=== PATIENT | male | born 1960 | race Caucasian/White ===

== ENCOUNTER 2023-03-13 11:05 | Emergency (ER) | payer MEDICARE, SELFPAY ==
[2023-03-13 11:10] VITALS: BP 130/105; PULSE 100; RESP 18; TEMP 36.3; O2SAT 97; BMI 38.3
[2023-03-13] MEDS: KETOROLAC 30 MG/ML inj IM (11:39)
--- NOTE | 2023-03-13 11:59 | ED_ITS ---
HPI - Back Pain/Injury General Date Seen: 03/13/23 Chief Complaint: Back Injury/Pain Stated Complaint: back pain Time Seen by Provider: 03/13/23 11:16 Source: patient Mode of arrival: ambulatory Limitations: no limitations History of Present Illness HPI Narrative: Patient is 62-year-old male presenting for right-sided low back pain. He has been having issues with back pain for a while now in had any recent MRI done 2 weeks ago. He is scheduled for an injection for his back pain 2 weeks from now. States that tonight the pain got acutely worse in use unable to ambulate. He continues to be painful today with difficulty ambulating. He does state he is able to make it to the bathroom this morning but was unable to yesterday due to the pain. Has taken Tylenol and ibuprofen for pain with minimal improvement in symptoms. He is also using the muscle relaxant has not been helping. He is currently not on any pain contract. Denies numbness, saddle anesthesia, incontinence. The pain radiates to right gluteal region and he does have some small radiation to his right leg Related Data Home Medications Medication Instructions Recorded Confirmed atorvastatin 40 mg tablet 40 mg PO DAILY 03/13/23 03/13/23 cyclobenzaprine 10 mg tablet 10 mg PO QPM 03/13/23 03/13/23 glimepiride 4 mg tablet 4 mg PO BID 03/13/23 03/13/23 levothyroxine 125 mcg tablet 125 mcg PO DAILY 03/13/23 03/13/23 lisinopril 10 mg tablet 10 mg PO DAILY 03/13/23 03/13/23 metformin 500 mg tablet 500 mg PO 3XD 03/13/23 03/13/23 semaglutide 0.25 mg or 0.5 mg (2 mg subcut 03/13/23 mg/3 mL) subcutaneous pen injector (Ozempic) sitagliptin phosphate 100 mg 100 mg PO DAILY 03/13/23 03/13/23 tablet (Januvia) tamsulosin 0.4 mg capsule 0.8 mg PO DAILY 03/13/23 03/13/23 Allergies Allergy/AdvReac Type Severity Reaction Status Date / Time No Known Drug Allergies Allergy Verified 03/13/23 11:16 Review of Systems Narrative: Negative unless stated in HPI Exam Narrative: Exam Narrative: Const: Well-nourished, Well-developed, in mild distress Eyes: PERRL, no conjunctival injection, and symmetrical lids HENT: Atraumatic external nose and ears. Moist mucous membranes. MSK:Extremities w/o deformity, Normal Active ROM Skin: Warm, Dry. No rashes or lesions. Neuro: Normal Muscle tone, No focal neurological deficits. Psych: Awake, Alert, & Oriented x3. Appropriate mood and affect. Const: Vital Signs, click to edit/add: Vital Signs - 24 hr 03/13/23 11:10 Temperature 97.3 F L Pulse Rate [Pulse Oximeter] 100 Respiratory Rate 18 Blood Pressure [Ri ght Upper Arm] 130/105 H Pulse Oximetry 97 Oxygen Delivery Me thod Room Air Course Vital Signs Vital signs: Initial Vital Signs Temperature 97.3 F L 03/13/23 11:10 Temperature Source Temporal Artery Scan 03/13/23 11:10 Pulse Rate 100 03/13/23 11:10 Respiratory Rate 18 03/13/23 11:10 Blood Pressure 130/105 H 03/13/23 11:10 Blood Pressure Mean 113 H 03/13/23 11:10 Blood Pressure Position Sitting 03/13/23 11:10 Pulse Oximetry 97 03/13/23 11:10 Oxygen Delivery Method Room Air 03/13/23 11:10 Vital Signs Temperature 97.3 F L 03/13/23 11:10 Pulse Rate 100 03/13/23 11:10 Respiratory Rate 18 03/13/23 11:10 Blood Pressure 130/105 H 03/13/23 11:10 Pulse Oximetry 97 03/13/23 11:10 Oxygen Delivery Method Room Air 03/13/23 11:10 Temperature 97.3 F L 03/13/23 11:10 Pulse Rate 100 03/13/23 11:10 Respiratory Rate 18 03/13/23 11:10 Blood Pressure 130/105 H 03/13/23 11:10 Pulse Oximetry 97 03/13/23 11:10 Oxygen Delivery Method Room Air 03/13/23 11:10 MDM - Back Pain/Injury MDM Narrative Medical decision making narrative: Patient is 62-year-old male presenting for right lower back pain. He has had a recent MRI for this is scheduled for an injection next few weeks. He is trying to get his appointment moved up. His pain was uncontrollable since last night. No trauma or injuries to it that he is aware of. I do not believe repeat imaging will show any benefits today. We will given Toradol for pain also trying oxycodone. Patient's pain is better. Patient will be discharged home and will be given some oxycodone. Informed to follow-up with his primary care provider if pain continues. Discharge Plan Discharge Clinical Impression: Low back pain Qualifiers: Chronicity: acute Back pain laterality: right Sciatica presence: with sciatica Sciatica laterality: sciatica of right side Qualified Code(s): M54.41 - Lumbago with sciatica, right side Patient Disposition: Home, Self-Care Condition: Stable Instructions: Back Pain (ED) Additional Instructions: Take the Medication as prescribed. Return for new or worsening symptoms. If symptoms persist follow-up with your primary care provider. Prescriptions: No Action cyclobenzaprine 10 mg tablet 10 mg PO QPM atorvastatin 40 mg tablet 40 mg PO DAILY metformin 500 mg tablet 500 mg PO 3XD tamsulosin 0.4 mg capsule 0.8 mg PO DAILY levothyroxine 125 mcg tablet 125 mcg PO DAILY lisinopril 10 mg tablet 10 mg PO DAILY glimepiride 4 mg tablet 4 mg PO BID Januvia 100 mg tablet 100 mg PO DAILY Ozempic 0.25 mg or 0.5 mg (2 mg/3 mL) pen injector subcut Follow Up/Referrals: Luca Hogue MD [Primary Care Provider] - Stand Alone Forms: [facility] Info Instructions
[2023-03-13] MEDS: OXYCODONE 5 MG TABLET PO (12:02)
== END 2023-03-13 12:59 | disposition home or self-care (01) ==
PROVIDERS: Emergency Provider Student in an Organized Health Care Education/Training Program; PCP Family Medicine
DX: M54.41 Lumbago with sciatica, right side (principal)
CPT/HCPCS: 96372; 99282; 99283; A9270; J1885

== ENCOUNTER 2023-03-22 10:22 | Outpatient (CLI) | payer MEDICARE, SELFPAY | END 2023-03-22 10:23 | disposition home or self-care (01) | LOC: INJ CL 10:24 | PROVIDERS: PCP Family Medicine; Visit Provider Family Medicine | DX: M54.16 Radiculopathy, lumbar region (principal); M48.062 Spinal stenosis, lumbar region with neurogenic claudication | CPT/HCPCS: 62323; J0702; Q9966 ==

== ENCOUNTER 2023-12-16 11:28 | Outpatient (CLI) | payer MEDICARE, SELFPAY ==
--- OUTSIDE RECORDS SUMMARY | 2023-12-16 11:31 | XMS_ITS | Continuity of Care Document ---
Author Organization [facility] Address [address] [place] [address] Phone Care Team Providers Care Spouter Name Role Phone Yolanda LI, PhD, Homero Unavailable Unavai lable Allergies, Adverse Reactions, Alerts Substance Reaction Status Criticality No Known Allergies Active No Inform ation Medications Medication Instructions Dosage Effective Dates (start - stop) Status Comments oxycodone 10 mg tablet take one-half to one tablet by oral route at HS PRN postop pain G89.18 - Active Valium 5 mg tablet Take 1 tab PO 1 hour prior to MRI scan, may repeat 1 time. - Active JANUVIA (unknown strength) Not Available - Active METFORMIN HCL (unknown strength) Not Available - Active GLIPIZIDE (unknown strength) Not Available - Active Procedures Procedure Date Postop Followup Visit Postop Followup Visit X-Ray Exam Lwr Spine, Min 4 Views TLIF - Includes PSF at the same level - PA PSF - Additional Level(s) - PA 24 PEARL FACETC/FRMT ARTHRD LUM 1 Lami For Excision Of Lesion, Lumbar (Cys t, Lipoma etc.) - PA Lami, Facetectomy/Foraminotomy, Lumbar ( Stenosis) Posterior Instrumentation, 3-6 Segments - PA PEEK/ Cage/ Implant, For Interbody Fusio n - PA TLIF - Includes PSF at the same level Ri PEARL FACETC/FRMT ARTHRD LUM 1 PSF - Additional Level(s) Lami For Excision Of Lesion, Lumbar (Cys t, Lipoma etc.) Lami, Facetectomy/Foraminotomy, Lumbar ( Stenosis) Posterior Instrumentation, 3-6 Segments PEEK/ Cage/ Implant, For Interbody Fusio n Postop Followup Visit POSTOP FOLLOW-UP VISIT Telephone 2023 Corpectomy, Cervical - PA Anterior Interbody Fusion, Cervical - PA Anterior Interbody Fusion - Additional L evel - PA ACDF - Anterior Cervical Discectomy and Fusion - PA Anterior Instrumentation, 4-7 Segments - PA PEEK/ Cage/ Implant, For Corpectomy & Fu katie - PA PEEK/ Cage/ Implant, For Interbody Fusio n - PA Corpectomy, Cervical Anterior Interbody Fusion, Cervical Anterior Interbody Fusion - Additional L evel(s) ACDF - Anterior Cervical Discectomy and Fusion Anterior Instrumentation, 4-7 Segments J PEEK/ Cage/ Implant, For Corpectomy & Fu katie PEEK/ Cage/ Implant, For Interbody Fusio n OFFICE/OUTPATIENT VISIT EST Phone Office/Outpatient Visit,[facility], [facility] 2022 Advance Directives Directive Yes / No Effective Date File Name No Information Encounters Encounter Description Practice Location Reason(s) For Visit Diagnoses Date Provider Providers Copied on Encounter Didier/MATILDA Silver, [address], [place], [id number], [place] tel:[phone] [facility] [place] Arthrodesis status 4 Yolanda Valentin. [facility], [address], [place], [address], [place]. tel:[phone] Referring Provider: Luca Shankar, [facility] [address], [place], [address]. tel:[phone] [facility], [address], [place], [place], [id number], [place] tel:[phone] [facility] [place] Encounter for other specified surgical aftercare 4 Yolanda Valentin. [facility], [address], [place], [address], [place]. tel:[phone] Referring Provider: Luca Shankar, [facility] [address], [place], [address]. tel:[phone] [facility], [address], [place], [id number], [place] tel:[phone] [facility] [place] No Information 4 Yolanda Valentin. [facility], [address], [place], [address], [place]. tel:[phone] [facility], [address], [place], [place], [id number], [place] tel:[phone] [facility] No Information 4 Gadiel Ko. [facility], [address], [facility] [place], [id number] , [place]. tel:[phone] Referring Provider: Luca Shankar [facility] [address], [place], [address]. tel:[phone] [facility], [address], [place], [place], [id number], [place] tel:[phone] [facility] No Information 4 Yolanda Valentin. [facility], [address], [place], [address], [place]. tel:[phone] Referring Provider: Luca Shankar, [facility] [address], [place], [address]. tel:[phone] [facility], [address], [place], [place], [id number], [place] tel:[phone] [facility] [place] Encounter for other specified surgical aftercare 4 Yolanda Valentin. [facility], [address], [place], [address], [place]. tel:[phone] Referring Provider: Didier Caldwell [address], [place], [address]. tel:[phone] [facility], [address], [place], [place], [id number], [place] tel:[phone] [facility] No Information 4 Yolanda Valentin. [facility], [address], [place], [address], [place]. tel:[phone] Referring Provider: Luca Shankar [employer] [facility] [address], [place], [address]. tel:[phone] [facility], [address], [facility] [place], [id number], [place] tel:[phone] [facility] No Information 4 Gadiel Ko. [facility], [address], [place], [place], [id number] , [place]. tel:[phone] Referring Provider: Luca Shankar [employer] [address], [place], [address]. tel:[phone] [facility], [address], [place], [id number], [place] tel:[phone] [facility] No Information 4 Yolanda Valentin. [facility], [address], [facility] [place], [address], [place]. tel:[phone] Referring Provider: Luca Shankar [employer] [address] [place], [address]. tel:[phone] OFFICE/OUTPAT IENT VISIT EST Phone [facility], [address], [place], [id number], [place] tel:[phone] [facility] No Information 4 Yolanda Homero. [facility], [address], [place], [address], [place]. [phone] Referring Provider: Luca Shankar [employer] [address] [place], [address]. tel:[phone] Office/Outpat ient Visit,[place], [place] [facility], [address], [place], [id number], [place] tel:[phone] [facility] Spinal stenosis, lumbar region with neurogenic claudication 3 Guerrero Homero. [facility] [place], [address], [place], [address], [place]. [phone] Referring Provider: Luca Shankar [employer] [address] [place], [address]. tel:[phone] Family History Family Member Type Diagnosis Age At Onset No Information Payers Payer name Insurance type Covered alliance party ID Authoriza tion(s) [employer] [id number] Social History Type Description Quantity Date Captured Comments Alcohol Use Details Unknown Caffeine Use Details Unknown Tobacco Use Status No Information Smoking Status No Information Sex Male Vital Signs Date / Time: Height Weight BMI Pulse Rate Blood Pressure Temperature Respiratory Rate Body Surface Area Head Circumference Head Circ. Percentile Wt./Yuri. Percentile BMI percentile Pulse Ox Inhaled Ox 8:11 AM 76.00 in Chief Complaint And Reason For Visit No Information Reason For Referral Reason For Referral No Information History Of Present Illness Encounter Date Complaint History Of Prese nt Illness No Information Functional Status Date Functional Assessmen t No Information Instructions Date Instruction Additional Infor mation No Information Assessments Type Assessment Date assessment Arthrodesis status Patient Care Teams Name Effective Dates (start - stop) Status Members No Information
--- OUTSIDE RECORDS SUMMARY | 2023-12-16 11:31 | XMS_ITS | Clinical Summary ---
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 DO NOT CRUSH OR CHEW. 0 08/10/19 06 Active cholecalciferol (VITAMIN D) 1,000 unit capsule Take 1,000 Units by mouth once daily. Active magnesium 250 mg tab Take 250 mg by mouth at bedtime. Active multivitamin (MVI) tablet Take 1 tablet by mouth once daily. Active levothyroxine (SYNTHROID) 125 mcg tabletIndications: Acquired hypothyroidism Take 1 Tablet (125 mcg) by mouth once daily. 90 Tablet 3 03/02/20 23 Active lisinopriL (PRINIVIL; ZESTRIL) 10 mg tabletIndications: Hypertension, unspecified type Take 1 Tablet (10 mg) by mouth once daily. 90 Tablet 3 04/04/20 23 Active glimepiride (AMARYL) 4 mg tabletIndications: Type 2 diabetes mellitus with complication, without long-term current use of insulin (HC) Take 2 Tablets (8 mg) by mouth once daily with a meal. For Type 2 Diabetes. 180 Tablet 2 07/11/19 24 Active metFORMIN (GLUCOPHAGE) 500 mg tabletIndications: Type 2 diabetes mellitus with complication, without long-term current use of insulin (HC) TAKE 1 TABLET BY MOUTH IN THE MORNING AND 2 TABLETS IN THE EVENING FOR DIABETES 270 Tablet 2 07/11/19 24 Active SITagliptin phosphate (Januvia) 100 mg tabletIndications: Type 2 diabetes mellitus with complication, without long-term current use of insulin (HC) Take 1 Tablet (100 mg) by mouth once daily. For Diabetes. 90 Tablet 2 07/11/19 24 Active tamsulosin (FLOMAX) 0.4 mg capsuleIndications :Urinary retention Take 2 Capsules (0.8 mg) by mouth once daily after a meal. For urinary symptoms 180 Capsule 1 07/11/19 24 Active polyethylene glycol-electrolyte (GOLYTELY) 236-22.74-6.74 -5.86 gram suspensionIndicati ons:Encounter for screening colonoscopy Drink 2 liters the day before colonoscopy and 2 liters 6 hours before colonoscopy appointment 4000 mL 12/05/19 24 Active atorvastatin (LIPITOR) 40 mg tabletIndications: Mixed hyperlipidemia Take 1 Tablet (40 mg) by mouth at bedtime. 12/05/19 24 Active Ozempic 0.25 mg or 0.5 mg (2 mg/3 mL) subcutaneous penIndications:Typ e 2 diabetes mellitus with complication, without long-term current use of insulin (HC) INJECT 0.5 MG SUBCUTANEOUSLY ONCE WEEKLY. 9 mL 12/07/19 24 Active atorvastatin (LIPITOR) 40 mg tabletIndications: Mixed hyperlipidemia Take 1 Tablet (40 mg) by mouth once daily. 90 Tablet 2 04/04/20 23 024 Discontinued(*M edication adjustment) acetaminophen (TYLENOL EXTRA STRGTH) 500 mg tabletIndications: Post-op pain Take 2 Tablets (1,000 mg) by mouth every 6 hours. Max acetaminophen dose: 4000mg in 24 hrs. 20 Tablet 07/20/19 24 024 Discontinued(*P atient states no longer taking) oxyCODONE 10 mg tabletIndications: Post-op pain Take one-half to 1 tablet (5-10 mg) by mouth every 4 hours if needed for severe pain. 30 Tablet 07/20/19 24 024 Discontinued(*P atient states no longer taking) sennosides-docusat e (SENOKOT S) (8.6-50 mg) tabletIndications: Post-op pain Take 1 to 4 tablets by mouth two times daily. 20 Tablet 07/20/19 24 024 Discontinued(*P atient states no longer taking) WalkerIndications: Post-op pain Walker with front wheels for home use for 3 months. 1 Each 07/20/19 24 024 Discontinued(*P atient states no longer taking) methocarbamoL (ROBAXIN) 750 mg tabletIndications: Acute post-operative pain TAKE ONE TABLET BY MOUTH EVERY SIX HOURS NEEDED FOR MUSCLE SPASM 60 Tablet 07/21/19 24 024 Discontinued(*P atient states no longer taking) semaglutide (Ozempic) 2 mg/3 mL penIndications:Typ e 2 diabetes mellitus with complication, without long-term current use of insulin (HC) INJECT 0.5MG SUBCUTANEOUSLY ONCE WEEKLY 9 mL 09/14/19 024 Discontinued Active Problems Problem Noted Date Diagnosed Date Spondylolisthesis 07/19/2023 Spinal stenosis, lumbar alexandro on, with neurogenic claudication 07/19/2023 Stricture of urethral meatus in male 06/07/2023 Spondylosis, cervical, with myelopathy 4 Spondylosis, cervical, with myelopathy 4 Balanitis 12/30/2019 Phimosis 12/30/2019 Acute urethral obstruction 12/30/2019 Obstructive uropathy 12/30/2019 BPH (benign prostatic hyperplasia) 12/30/2019 Insomnia 12/30/2019 Hyperlipidemia 12/30/2019 Urinary retention 12/30/2019 Overview: Dec 2019: Creatinine increased to over 3. TAMMY (acute kidney injury) 12/30/2019 CKD (chronic kidney disease) stage 3, GFR 30-59 ml/min 08/06/2017 Overview: July 2017: Creatinine 1.4, GFR 53. Mar 2019: Creatinine 1.89 with GFR of 37. Possibly associated with foot infection. April 2019, Creatinine 1.95, Referral to religion teacher. October 2019: Creatinine 1.47 and GFR 50. Dec 2019: Creatinine jumped to 3.5 with acute urinary retention. On recheck much better down to 1.38. Jun 2021: Creatinine 1.2, GFR > 60. Microalbuminuria 11/29/2014 Overview: On ALIX inhibitor, lisinopril. Vitamin D deficiency 04/10/2014 Overview: April 2014: Vitamin D 14. Controlled substance agreement signed and scanne d 05/01/13 04/05/2014 Routine adult health maintenance 10/12/2013 Overview: Colonoscopy 10/2013 normal repeat in 10 years Low back pain 10/17/2011 Overview: Controlled substance agreement 05/01/[address] Shoemaker. Controlled Substance Agreement signed April [address] Hogue for Tramadol (Ultram) up to 60/month for back pain. ~ March 2023: L4-L5 right [place] epidural steroid injection by Dr. Marshall. Acquired hypothyroidism 05/06/2010 Overview: Diagnosis 2009. Jun 2021: increased Levothyroxine from 100 to 112mcg. Regular astigmatism 07/12/2006 Presbyopia 07/12/2006 Myopia 07/12/2006 Primary hypertension 01/20/2005 Overview: Mar 2019: decreased hydrochlorothiazide from 25 to 12.5mg due to mildly hypotensive and increase in creatinine associated with foot infection. Dec 2019: STopping hydrochlorothiazide permanently due to possible gout right knee. Also off lisinopril due to infection/low blood pressure. Jan 2020: blood pressure still good despite no lisinopril and no Hydrochlorothiazide. Mixed hyperlipidemia 06/18/2002 Overview: Previously on Atorvastatin (Lipitor) thinks had stomach upset?, and crestor tolerated well, but changed to Simvastatin (Zocor) due to cost. November 2013: trial on crestor, pending Prior Auth approval, if too expensive, go back to Simvastatin (Zocor). July 2014: Patient paying extra for crestor over Simvastatin (Zocor). August 2016: side effects of possible mild myalgia from crestor, changing back to Simvastatin (Zocor) 40mg. Jun 2021: changing Simvastatin (Zocor) to Atorvastatin (Lipitor) 40mg to get on high intensity statin. 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 NUCLEAR STRESS TEST 04/2008 NORMAL EF 56% Next eye exam 04/17 retinal specialist. April 2013: positive microalbuminuria, already on ACEI, continue. Ruchi SONI approved, see December 12 2013 chart note. Mar 2019: decreased metformin to 1000mg due to Acute Kidney problem. Jun 2021: Added trulicity once weekly injections, also increased metformin to 1,500mg. November 2021: Hemoglobin A1c greatly improved on Trulicity, but due to cost changing to Ozempic. May 2023: Increased ozempic to 0.5mg / week dose via [employer]. FOOT ULCER, DIABETIC 03/16/2002 Overview: Under the regular care of Podsiatrist Right pinky toe amputation 2002, and left 3rd toe 1/2 amputation approximately 2005 Diabetic polyneuropathy asso ciated with type 2 diabetes mellitus 03/16/2002 Resolved Problems Problem Noted Date Diagnosed Date Resolved Date ERECTILE DYSFUNCTION - ORGANIC 11/13/2002 05/01/2012 Encounters Date Type Department Care Team Description 12/13/2023 Medical Messaging [facility] [address] [place] [address] Luca Hogue MD Colonoscopy 12/12/2023 Telephone [facility] [address] [facility] [address] [place] [address] Vitor Hawthorne MBBS Follow Up 12/05/2023 7:00 AM CDT Preop Visit [facility] [address] [place] [address] Luca Hogue MD Preoperative Exam (DOS 12/16/2023/[facility]/Dr Harrington/Colonoscopy ); Diabetes (Last Diabetic Check: 07/11/2023/Last Diabetic Eye Exam: 05/06/2023/Last Diabetic Education: 12/03/2019) 12/05/2023 Refill [facility] [address] [place] [address] Luca Hogue MD Refill Request (Ozempic) 12/05/2023 Travel 11/30/2023 8:45 AM CDT Office Visit [facility] [address] [place] [address] Raj Ferro, ROMELIA Follow Up (Diabetic foot check, callus') 11/30/2023 Travel 11/29/2023 Telephone [facility] [address] [place] [address] Arnoldo Harrington MD Questions 11/23/2023 3:22 PM CDT - 11/23/2023 11:59 PM CDT Hospital Encounter [facility] [address] [facility] [address] [place] [address] Homero Guerrero MD Menden, Timothy J, PT 11/23/2023 Travel 11/17/2023 3:04 PM CDT - 11/17/2023 11:59 PM CDT Hospital Encounter [facility] [address] [facility] [address] [place] [address] Homero Guerrero MD Menden, Timothy J, PT 11/17/2023 Travel 11/07/2023 Medical Messaging [facility] [address] [place] [address] Luca Hogue MD Urologist/Upcoming Colonoscopy 11/03/2023 3:00 PM CDT - 11/03/2023 11:59 PM CDT Hospital Encounter [facility] [address] [facility] [address] [place] [address] Homero Guerrero MD Menden, Timothy J, PT 11/03/2023 Travel 10/27/2023 3:09 PM CDT - 10/27/2023 11:59 PM CDT Hospital Encounter [facility] [address] [place] [address] [address] [place] [address] Homero Guerrero MD Menden, Timothy J, PT 10/27/2023 Travel 10/20/2023 2:59 PM CDT - 10/20/2023 11:59 PM CDT Hospital Encounter [facility] [address] [place] [address] [address] [place] [address] Homero Guerrero MD Menden, Timothy J, PT 10/20/2023 Travel 10/13/2023 3:01 PM CDT - 10/13/2023 11:59 PM CDT Hospital Encounter [facility] [address] [place] [address] [address] [place] [address] Homero Guerrero MD Menden, Timothy J, PT 10/13/2023 Travel 10/11/[address] [address] Arnoldo Harrington MD Appointment 10/06/2023 1:36 PM CDT - 10/06/2023 11:59 PM CDT Hospital Encounter [facility] [address] [place] [address] Homero Guerrero MD Lee, Molly E, PT 10/06/2023 Travel 09/29/2023 2:38 PM CDT - 09/29/2023 11:59 PM CDT Hospital Encounter [address] [place] [address] Homero Guerrero MD Menden, Timothy J, PT 09/29/2023 Travel 09/22/2023 2:38 PM CDT - 09/22/2023 11:59 PM CDT Hospital Encounter [address] [place] [address] Homero Guerrero MD Menden, Timothy J, PT 09/22/2023 Travel 09/15/2023 8:19 AM CDT - 09/15/2023 11:59 PM CDT Hospital Encounter [facility] [address] [facility] [address] [place] [address] Homero Guerrero MD Menden, Timothy J, PT 09/15/2023 Travel from Last 3 Months Immunizations Name Administration Dates Next Due AMB Influenza, IIV3 (Age >=3 years)(Flu Clinic Only) 03/03/2010 COVID-19 vaccine (Roosevelt-J& J) PF, MDV 08/09/2020 COVID-19 vaccine (Moderna Rafat danielle 50mcg/0.25mL) PF, MDV 03/17/2021 Hepatitis B (Adult) 12/04/2014,07/26/2014,2013 Influenza, IIV4 02/17/2023,,06/08/2019,2017,03/07/2017,04/09/2016,04/10/2015,1 06/09/2013 Influenza,CCIIV4 PRESERV FREE 02/18/2022, 020 Pneumococcal Poly,23-Valent (Pneumovax) 11/13/2002 Td (Age >=7 Years) 11/13/2002 Tdap 08/06/2013 Zoster (Shingrix-RZV, recombinant) 01/30/2020, Family History * Patient is adopted Medical History Relation Name Comments No Known Problems Father adopted No Known Problems Mother adopted Genetic Other adopted. Relation Name Status Comments Father Mother Other Social History Tobacco Use Types Packs/Day Years Used Date Smoking Tobacco: Never Smokeless Tobacco: Never Tobacco Cessation:Counseling Given: Not Answered Alcohol Use Standard Drinks/Week Comments Yes 0 (1 standard drink = 0.6 oz pur e alcohol) Moderate PHQ-2 Answer Date Recorded PHQ-2 TOTAL SCORE 0 07/11/2023 Social Connections Answer Date Recorded Frequency of Communication with Friends and Fami ly 0 09/30/2022 Financial Resource Strain Answer Date R ecorded Difficulty of Paying Living Expenses 3 09/30/2022 Difficulty of Paying Living Expenses Not on file 09/30/2022 Food Insecurity Answer Date Recorded Worried About Running Out of Food in the Last Ye ar 1 09/30/2022 Transportation Needs Answer Date Record ed Lack of Transportation (Medical) 1 09/30/2022 Housing Stability Answer Date Recorded Unable to Pay for Housing in the Last Year 1 09/30/2022 Sex and Gender Information Value Date Recorded Sex Assigned at Not on file Gender Identity Not on file Sexual Orientation Not on file Obstetrics History Last Filed Vital Signs Vital Sign Reading Time Taken Comments Blood Pressure 118/77 12/05/2023 7:04 AM CDT Pulse 89 12/05/2023 7:04 AM CDT Temperature 37.1 ??C (98.7 ??F) 07/21/2023 7:51 AM CD T Respiratory Rate 16 07/21/2023 7:51 AM CDT Oxygen Saturation 100% 12/05/2023 7:04 AM CDT Inhaled Oxygen Concentration - - Weight 129.1 kg (284 lb 11.2 oz) 12/05/2023 7:04 AM CDT Height 190.8 cm (6' 3.12) 12/05/2023 7:04 AM CD T Body Mass Index 35.47 12/05/2023 7:04 AM CDT Plan of Treatment Upcoming Encounters Date Type Department Care Team (Late st Contact Info) Description 12/16/2023 11:45 AM CDT Office Visit [facility] [address] [place] [address] Arnoldo Harrington MD [address] [place] [address] Arrived 04/27/2024 7:00 AM PHOTOGRAPHER HELPER Office Visit [facility] [address] [place] [address] Luca Hogue MD [address] [place] [address] 04/27/2024 9:20 AM PHOTOGRAPHER HELPER Office Visit [facility] [address] [place] [address] [place] [address] [place] [address] Health Maintenance Due Date Last Done Comments HIV for age 15-65 1977 Pneumococcal series for age 6-64 (2 of 2 - PCV) 11/14/2003 11/13/2002 Tetanus booster 08/07/2023 08/06/2013, 11/13/2002 Influenza for age 50-64 01/08/2024 02/18/20, 02/18/2022, 01/27/2021, Additional history exists Depression screening for age 12+ 07/10/2024 07/11/2023, 06/09/2022, 06/07/2022, Additional history exists BMI (ht and wt on same day) for age 18+ 12/04/2024 12/05/2023, 07/11/2023, 06/07/2022, Additional history exists Lipids for age 45-75 12/04/2028 12/05/2023, 11/25/2022, 11/11/2021, Additional history exists Colonoscopy through age 75 12/15/2033 12/16/2023, Tdap Completed 08/06/2013 Zoster (shingles) series for age 50+ Completed 01/30/2020, 11/08/2019 Hepatitis C screening for ag e 18-79 Completed 09/29/2020 COVID-19 vaccine series Completed 02/18/20, 02/18/2022, 08/14/2021, Additional history exists Medical Devices Implanted Type Area Insolvency Consultant Device Identifier Shelf Expiration Date Model / Serial / Lot Iol Kidder +15.5 Acrysof Iq Sn60wf - [id number] Implanted:Qty: 1 on 04/18/2017 by Fitz Gill MD at [facility] Left: [employer] 05/08/2021 [id number]-[id number]# / [id number] / Iol Kidder -18 Acrysof Iq Sn60wf - [id number] Implanted:Qty: 1 on 04/25/2017 by Fitz iGll MD at [facility] Right: [employer] 07/24/2021 [id number]-39.0# / [id number] / Plate [place] Elite Cervical 52.5mm Implanted:Qty: 1 on 06/07/2023 by Homero Guerrero MD at [facility] N/A: Spine [id number] / / Description:PLATE ATLANTIS E LITE CERVICAL 52.5MM Screw Cerv Ant 4x16mm [place] Translational Fa Slf Tppng - [id number] Implanted:Qty: 1 on 06/07/2023 by Homero Guerrero MD at [facility] N/A: Spine Medtronic Spine/Ortho [id number] / / Screw Cerv Ant 4x14mm [place] Translational Va Slf Tppng - [id number] Implanted:Qty: 1 on 06/07/2023 by Homero Guerrero MD at [facility] N/A: Spine Medtronic Spine/Ortho [id number] / / Screw Cerv Ant 4x16mm [place] Translational Va Slf Tppng - [id number] Implanted:Qty: 2 on 06/07/2023 by Homero Guerrero MD at [facility] N/A: Spine Medtronic Spine/Ortho [id number] / / Screw Cerv Ant 4x17mm [place] Translational Va Slf Tppng - [id number] Implanted:Qty: 1 on 06/07/2023 by Homero Guerrero MD at [facility] N/A: Spine Medtronic Spine/Ortho [id number] / / Spacer Cage Lmbr [id number] Anatomic Ptc Implanted:Qty: 1 on 06/07/2023 by Homero Guerrero MD at [facility] 06/30/2030 [id number] / / 25NS Description:Spacer Cage Lmbr [id number] Anatomic Ptc Pliafx Prime Demineralized Cortical Bone Fibers 5.0cc Freeze-Dried Implanted:Qty: 1 on 06/07/2023 by Homero Guerrero MD at [facility] N/A: Spine 07/29/2027 [id number] / [id number] / Description:PLIAFX PRIME DEM INERALIZED CORTICAL BONE FIBERS 5.0CC FREEZE-DRIED [id number] 1-4mm 15cc Medtronic Chips Canclls Freeze Dried Implanted:Qty: 1 on 06/07/2023 by Homero Guerrero MD at [facility] N/A: Spine Med[employer] Spine/Ortho 07/06/2027 [id number] / [id number] / Spacer Cerv [id number] Vertestack Peek - [id number] Implanted:Qty: 1 on 06/07/2023 by Homero Guerrero MD at [facility] N/A: Spine Medtronic Spine/Ortho 11/27/2028 [id number] / / [id number] Spacer Cerv 7x49d85di Vertestack Peek - [id number] Implanted:Qty: 1 on 06/07/2023 by Homero Guerrero MD at [facility] N/A: Spine Medtronic Spine/Ortho 08/18/2029 [id number] / / 27MN Spacer Cage Cerv [id number] Vertestack Peek Stack Corpectomy - [id number] Implanted:Qty: 1 on 06/07/2023 by Homero Guerrero MD at [facility] N/A: Spine Medtronic Spine/Ortho 05/27/2029 [id number] / / 63MC Screw Cerv Ant 4.5x13mm [place] Translational Va Slf Tppng - [id number] Implanted:Qty: 1 on 06/07/2023 by Homero Guerrero MD at [facility] N/A: Spine Medtronic Spine/Ortho [id number] / / Bone 1-4mm 90cc Medtronic Chips Canclls Freeze Dried - [id number] Implanted:Qty: 1 on 07/19/2023 by Homero Guerrero MD at [facility] N/A: Spine Medtronic Spine/Ortho 07/08/2026 [id number] / [id number] / Spacer Lmbr 06y54il Capstone Tlif Titnm Coating - [id number] Implanted:Qty: 1 on 07/19/2023 by Homero Guerrero MD at [facility] N/A: Spine Medtronic Spine/Ortho 11/12/2030 [id number] / / 61NG Set Screw Lmbr Ant 5.5mm Solera Break Off - [id number] Implanted:Qty: 6 on 07/19/2023 by Homero Guerrero MD at [facility] N/A: Spine Medtronic Spine/Ortho [id number] / / Screw Lmbr Post 7.5x45mm Solera 5.5/6 Va Cocr - [id number] Implanted:Qty: 2 on 07/19/2023 by Homero Guerrero MD at [facility] N/A: Spine Medtronic Spine/Ortho [id number] / / Vincenzo Lmbr 55x5.5mm Solera 5.5/6 Cvd Titnm - [id number] Implanted:Qty: 1 on 07/19/2023 by Homero Guerrero MD at [facility] N/A: Spine Medtronic Spine/Ortho [id number] / / Vincenzo Lmbr 70x5.5mm Solera 5.5/6 Cvd Titnm - [id number] Implanted:Qty: 1 on 07/19/2023 by Homero Guerrero MD at [facility] N/A: Spine Medtronic Spine/Ortho [id number] / / Screw Lmbr Post 6.5x50mm Solera 5.5/6 Va Cocr - [id number] Implanted:Qty: 2 on 07/19/2023 by Homero Guerrero MD at [facility] N/A: Spine Medtronic Spine/Ortho [id number] / / Screw Lmbr Post 6.5x55mm Solera 5.5/6 Va Cocr - [id number] Implanted:Qty: 2 on 07/19/2023 by Homero Guerrero MD at [facility] N/A: Spine Medtronic Spine/Ortho [id number] / / Procedures Procedure Name Priority Date/Time Associated Diagnosis Comments COLONOSCOPY SCREENING Routine 12/16/2023 8:12 AM CDT Screen for colon cancer URINE ALBUMIN TO CREATININE RATIO, RANDOM Routine 12/05/2023 7:59 AM CDT Type 2 diabetes mellitus with complication, without long-term current use of insulin (HC) CREATININE Routine 12/05/2023 7:56 AM CDT Primary hypertension SODIUM Routine 12/05/2023 7:56 AM CDT Preoperative examination POTASSIUM Routine 12/05/2023 7:56 AM CDT Preoperative examination HEMOGLOBIN Routine 12/05/2023 7:56 AM CDT Preoperative examination Mild chronic anemia LIPID PANEL W REFLEX MEASURED LDL Routine 12/05/2023 7:56 AM CDT Mixed hyperlipidemia HEMOGLOBIN A1C Routine 12/05/2023 7:56 AM CDT Type 2 diabetes mellitus with complication, without long-term current use of insulin (HC) ANTI HCV Add On 09/29/2020 7:27 AM CDT Need for hepatitis C screening test from Last 3 Months or Most Recently Relevant to Health Maintenance Results * URINE ALBUMIN TO CREATININE RATIO, RANDOM (12/05/2023 7:59 AM CDT) ALB RAND URINE 15.8 mg/L 12/05/2023 4:10 PM CDT [facility] CREATININE,URIN E 2.39 g/L 12/05/2023 4:10 PM CDT [facility] ALBUMIN TO CREATININE RATIO,RAND UR 6.6 <30.0 mg/g creat 12/05/2023 4:10 PM CDT [facility] Urine URINE SPECIMEN / Unknown Non-Blood / Unknown 12/05/2023 7:59 AM CDT 12/05/2023 7:59 AM CDT Narrative [facility] - 12/05/2023 4:10 PM CDT If Albumin to Creatinine Ratio is elevated, consider the following: ? Elevations seen with incipient nephropathy associated ?? with diabetes mellitus or hypertension. Stress, exercise,hematuria, ?? and urinary tract infection may also produce elevated results. If clinically indicated, confirm with ?24 Hour Albumin to Creatinine Ratio. ?? Luca Hogue MD URINE [facility] [address] [place] [address], * LIPID PANEL W REFLEX MEASURED LDL (12/05/2023 7:56 AM CDT) CHOLESTEROL,TOTAL 141 100 - 199 mg/dL 12/05/2023 2:37 PM CDT [facility] Comment: Cholesterol, Total Reference Ranges Desirable <200 mg/dL Borderline 200-239 mg/dL High >=240 mg/dL TRIGLYCERIDES 85 <150 mg/dL 12/05/2023 2:37 PM CDT [facility] HDL CHOLESTEROL 66 >40 mg/dL 2:37 PM CDT [facility] NON-HDL CHOLESTEROL 75 <145 mg/dl 12/05/2023 2:37 PM CDT [facility] CHOL/HDL RATIO 2.14 <4.50 12/05/2023 2:37 PM CDT [facility] LDL CHOLESTEROL 58 <=130 mg/dL 12/05/2023 2:37 PM CDT [facility] VLDL CHOLESTEROL 17 <=30 mg/dL 12/05/2023 2:37 PM CDT [facility] PROVIDER ORDERED STATUS RANDOM 12/05/2023 2:37 PM CDT [facility] Blood BLOOD SPECIMEN / Unknown Venipuncture / Unknown 12/05/2023 7:56 AM CDT 12/05/2023 7:57 AM CDT Luca Hogue MD CHEMISTRY [facility] [address] [place] [address], [place] * (ABNORMAL) HEMOGLOBIN (12/05/2023 7:56 AM CDT) HEMOGLOBIN 13.3(L) 13.5 - 17.5 g/dL 12/05/2023 8:01 AM CDT [facility] MCV 87 80 - 100 fL 12/05/2023 8:01 AM CDT [facility] Blood BLOOD SPECIMEN / Unknown Venipuncture / Unknown 12/05/2023 7:56 AM CDT 12/05/2023 7:57 AM CDT Luca Hogue MD HEMATOLOGY [facility] [address] [place] [address], [place] [phone] * SODIUM (12/05/2023 7:56 AM CDT) SODIUM 137 136 - 145 mmol/L 12/05/2023 2:37 PM CDT [facility] Blood BLOOD SPECIMEN / Unknown Venipuncture / Unknown 12/05/2023 7:56 AM CDT 12/05/2023 7:57 AM CDT Luca Hogue MD CHEMISTRY [facility] [address] [place] [address], [place] * POTASSIUM (12/05/2023 7:56 AM CDT) POTASSIUM 4.8 3.5 - 5.1 mmol/L 12/05/2023 2:37 PM CDT [facility] Blood BLOOD SPECIMEN / Unknown Venipuncture / Unknown 12/05/2023 7:56 AM CDT 12/05/2023 7:57 AM CDT Luca Hogue MD CHEMISTRY Performing Organization Address City/State/[facility] Co de Phone Number [facility] [address] [place] [address], [place] * (ABNORMAL) CREATININE (12/05/2023 7:56 AM CDT) eGFR 79(L) >90 mL/min/1.7 3m2 12/05/2023 2:37 PM CDT [facility] Comment:As of 2021, eG FR is calculated by the CKD-EPI creatinine equation without race adjustment. ??eGFR can be influenced by muscle mass, exercise, and diet. ??The reported eGFR is an estimation only and is only applicable if the renal function is stable. CREATININE 1.07 0.70 - 1.20 mg/dL 12/05/2023 2:37 PM CDT [facility] Blood BLOOD SPECIMEN / Unknown Venipuncture / Unknown 12/05/2023 7:56 AM CDT 12/05/2023 7:57 AM CDT Luca Hogue MD CHEMISTRY Performing Organization Address [facility]/ZIP Co de Phone Number [facility] [address] [place] [phone], * HEMOGLOBIN A1C MONITORING (POCT) (12/05/2023 7:56 AM CDT) HEMOGLOBIN A1C MONITORING (POCT) 6.0 <=6.4 % 12/05/2023 8:10 AM CDT [facility] Blood BLOOD SPECIMEN / Unknown Venipuncture / Unknown 12/05/2023 7:56 AM CDT 12/05/2023 7:57 AM CDT Narrative [facility] - 12/05/2023 8:10 AM CDT ? (<=6.9%) ? Indicates good control ? (7.0% to 7.9%) ? Indicates fair control ? (>=8.0%) ? Indicates poor control ?? NOTE: ??These thresholds are guidelines and ?individual targets may vary. Falsely low levels may be seen with: Recent Transfusion, Recent Significant Blood Loss, Hemolytic Diseases, or Falsely elevated levels may be seen with: Untreated Anemias, Splenectomy ? Luca Hogue MD CHEMISTRY Performing Organization Address [facility] Co de Phone Number [facility] [address] [place] [address], * ANTI HCV (09/29/2020 7:27 AM CDT) HEPATITIS C ANTIBODY Non-React maurice Non-React maurice 09/29/2020 3:57 PM CDT [facility] Comment:Antibodies to HCV no t detected; does not exclude the possibility of exposure to HCV. Blood BLOOD SPECIMEN / Unknown Venipuncture / Unknown 09/29/2020 7:27 AM CDT 09/29/2020 7:27 AM CDT Luca Hogue MD SEND OUTS [facility] [address] [place] [address], from Last 3 Months or Most Recently Relevant to Health Maintenance Advance Directives * Full Code (Latest Code Status on File) Date Activated Date Inactivated Comments 07/19/2023 8:15 PM 07/21/2023 4:37 PM Question Answer Comments Code Status Discussion: Other * Full Code Date Activated Date Inactivated Comments 07/19/2023 8:01 AM 07/19/2023 8:15 PM Question Answer Comments Code Status Discussion: Unable to Assess Preferences, Provider to review later * Full Code Date Activated Date Inactivated Comments 06/07/2023 6:56 PM 06/08/2023 4:30 PM Question Answer Comments Code Status Discussion: Other * Full Code Date Activated Date Inactivated Comments 06/07/2023 3:42 PM 06/07/2023 6:56 PM Question Answer Comments Code Status Discussion: Reviewed Preferences * Full Code Date Activated Date Inactivated Comments 06/07/2023 5:53 AM 06/07/2023 3:42 PM Question Answer Comments Code Status Discussion: Unable to Assess Preferences, Provider to review later Care 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
--- OUTSIDE RECORDS SUMMARY | 2023-12-16 11:31 | XMS_ITS | Continuity of Care Document ---
Author Organization [facility], [facility] Address [address] [facility] [address] [place] [address] Care Team Providers Care Community Assistant Name Role Phone SELVIN MARCO Primary Care Provider [phone] Assessment No assessment recorded. Plan of Treatment Reminders Order Date Submit Date Provider Last Modified By Organization Details Last Modified Time Details Appointments None record ed. Lab None record ed. Referral None record ed. Procedures None record ed. Surgeries None record ed. Imaging None record ed. Medication Orders None record ed. Patient TargetsNo targets recorded. Patient InstructionsNo instructions recorded. Reason for Referral None Reported. Results Created Date Observation Date Name Description Value Unit Range Abnormal Flag LastModifiedBy Organization Detail LastModifiedTime 11/01/19 24 10/05/2023 bladd er scan (PROC ) No observ ation record ed. BARCODE Not Available 11/01/2023 17:25:13 Result Notes None recorded. Problems Name Status Onset Date Resolution Date Notes Provider Name and Address Organization Details Recorded Time Sensation as if urinary bladder still full Active 06/14/19 Marilin proctor [facility] 06/14/2022 17:20:50 Acute cystitis Active 06/23/19 Jordan Reno MD [address] [facility],[address] [place] [address], [phone], [facility] 06/23/2022 12:20:02 Lower urinary tract symptoms due to benign prostatic hypertrophy Active 06/23/19 Jordan Reno MD [address] [facility],[address], [place], [address], [facility] 06/23/2022 12:47:01 Blood in urine Active 06/25/19 Jordan Reno MD [address] [facility],[address], [place], [address], [facility] 06/25/2022 08:59:56 Acquired phimosis Active 10/05/19 24 Jordan Reno MD [address] [facility],[address], [place], [address], [facility] 10/05/2023 10:01:29 Problem Notes None recorded. Procedures Surgical History Date Name Laterality Status Provider Name and Address Organization Details Recorded Time 10/05/19 24 COMPLEX VISIT completed Jordan Reno MD [address] [facility],[address], [place], [address], [facility] 10/05/2023 10:02:06 10/05/19 24 Bladder Scan completed Carla proctor [facility] 10/05/2023 08:50:43 06/14/19 23 [facility] 17:22:47 05/18/19 22 [facility]21 15:23:13 01/16/20 20 CIRC[facility]CISION [facility]SURG) [facility]/2020 09:06:50 10/13/19 14 [facility] 09:48:44 [facility] foot [facility] 16:57:33 Imaging Results None recorded. Procedure Notes None recorded. Medical Equipment None Reported. Allergies No known drug allergies Medications Name Sig Start Date Stop Date Status Note LastModified by Organization Details LastModified Time Prescription - New 05/16 completed Not Available Not Available Not Available cyclobenzapr ine 10 mg tablet active Not Available Not Available Not Available atorvastatin 40 mg tablet active Not Available Not Available Not Available metformin 500 mg tablet active Not Available Not Available Not Available trazodone 50 mg tablet 10/04 completed Not Available Not Available Not Available azithromycin 250 mg tablet 05/18 completed Not Available Not Available Not Available hydrocodone 5 mg-acetamino phen 325 mg tablet 05/16 completed Not Available Not Available Not Available permethrin 5 % topical cream APPLY TWICE A WEEK 10/04 completed Not Available Not Available Not Available acetaminophe n 500 mg tablet 10/04 completed Not Available Not Available Not Available triamcinolon e acetonide 0.1 % topical cream 10/04 completed Not Available Not Available Not Available simvastatin 40 mg tablet active Not Available Not Available Not Available levothyroxin e 100 mcg tablet active Not Available Not Available Not Available lorazepam 0.5 mg tablet 10/04 completed Not Available Not Available Not Available methocarbamo l 750 mg tablet active Not Available Not Available Not Available tamsulosin 0.4 mg capsule active Not Available Not Available Not Available meclizine 25 mg tablet active Not Available Not Available No t Available cephalexin 500 mg capsule 05/16 completed Not Available Not Available Not Available metformin 1,000 mg tablet active Not Available Not Available Not Available levothyroxin e 125 mcg tablet active Not Available Not Available Not Available lisinopril 10 mg tablet active Not Available Not Available Not Available glimepiride 4 mg tablet active Not Available Not Available Not Available cephalexin 500 mg tablet TAKE 1 TABLET BY MOUTH EVERY 6 HOURS FOR 7 DAYS 05/18 completed Not Available Not Available Not Available gabapentin 100 mg capsule active Not Available Not Available Not Available cefdinir 300 mg capsule Take 1 capsule every 12 hours by oral route for 14 days. 10/04 completed Not Available Not Available Not Available diazepam 5 mg tablet 10/04 completed Not Available Not Available Not Available levothyroxin e 112 mcg tablet active Not Available Not Available Not Available amoxicillin 875 mg-potassium clavulanate 125 mg tablet 10/04 completed Not Available Not Available Not Available oxycodone 5 mg tablet 10/04 completed Not Available Not Available Not Available aspirin active Not Available Not Avail able Not Available Flomax 05/16 completed Not Available Not Available Not Available simvastatin 05/16 completed Not Available Not Available Not Available Keflex 05/16 completed Not Available Not Available Not Available lisinopril 05/18 completed Not Available Not Available Not Available Synthroid 05/16 completed Not Available Not Available Not Available Tylenol active Not Available Not Avail able Not Available trazodone 05/16 completed Not Available Not Available Not Available metformin 05/16 completed Not Available Not Available Not Available Amaryl 05/16 completed Not Available Not Available Not Available Januvia 100 mg tablet active Not Available Not Available No t Available Januvia 05/16 completed Not Available Not Available Not Available oxycodone 10 mg tablet 10/04 completed Not Available Not Available Not Available Senexon-S 8.6 mg-50 mg tablet 10/04 completed Not Available Not Available Not Available TRUEplus Lancets 33 gauge active Not Available Not Available Not Available Trulicity 0.75 mg/0.5 mL subcutaneous pen injector active Not Available Not Available Not Available Ozempic 0.25 mg or 0.5 mg (2 mg/1.5 mL) subcutaneous pen injector active Not Available Not Available Not Available Ozempic 0.25 mg or 0.5 mg (2 mg/3 mL) subcutaneous pen injector active Not Available Not Available Not Available Vitals Date Recorded Body height Body mass index (BMI) Body weight Provider Name and Address Organization Details Last Updated DateTime 10/05/2023 193.04 cm 35.3 kg/m2 432615.79 g Carla Ng [facility] 10/05/2023 08:47:45 Social History Question Answer Notes LastModified by Organizat ion Details LastModified Time Tobacco Smoking Status [facility] 16:57:16 What Is Your Level Of Alcohol Consumption? Occasional [email or web address] Information not available 10/05/2023 What Is Your Level Of Caffeine Consumption? Occasional [email or web address] Information not available 10/05/2023 Do You Or Have You Ever Used E-cigarettes Or Vape? Never Used Electronic Cigarettes [email or web address] Information not available 01/10/2020 What Was The Date Of Your Most Recent Tobacco Screening? 10/05/2023 [email or web address] Information not available 10/05/2023 Have You Ever Been Counseled For Unhealthy Alcohol Use? No [email or web address] Information not available 10/05/2023 Do You Use Any Illicit Or Recreational Drugs? No [email or web address] Information not available 10/05/2023 Has Tobacco Cessation Counseling Been Provided? No [email or web address] Information not available 10/05/2023 Do You Or Have You Ever Used Any Other Forms Of Tobacco Or Nicotine? No [email or web address] Information not available 10/05/2023 How Many Days In The Past Year Have You Consumed 5 Or More Drinks? 0 [email or web address] Information no t available 10/05/2023 Sex: Unknown Functional Status None recorded. Mental Status None recorded. Family History Nothing Reported. Medical History Condition Response Diabetes Y Sexually Transmitted Infection N Other N Bleeding Disorder N High Blood Pressure Y Kidney Stones N High Cholesterol Y GERD/Acid Reflux N Heart Disease N Cancer N Lung Disease N Depression N Immunizations Vaccine Type Date Status Provider Name and Address Organization Details Recorded Time COVID-19, mRNA, LNP-S, PF, monika-sucrose, 30 mcg/0.3 mL 02/17/2023 completed Carla September null, [facility] 10/05/2023 08:47:49 Influenza, split virus, quadrivalent, PF 02/17/2023 completed Carla September null, [facility] 10/05/2023 08:47:49 Influenza, MDCK, quadrivalent, PF 01/25/2020 [facility] 15:30:20 zoster recombinant 11/08/2019 completed Azul Marlow null, [facility] 03/15/2023 15:30:20 zoster recombinant 01/30/2020 [facility] 15:30:20 COVID-19, mRNA, LNP-S, PF, 100 mcg/0.5mL dose or 50 mcg/0.25mL dose 03/17/2021 [facility]23 15:30:20 COVID-19 vaccine, vector-nr, [id number], PF, 0.5 mL 08/09/2020 [facility] 15:30:20 pneumococcal polysaccharide PPV23 11/13/2002 [facility] 15:30:20 Tdap 08/06/2013 [facility] 15:30:20 Influenza, split virus, trivalent, preservative 03/03/2010 completed Azul Almejere null, [facility] 03/15/2023 15:30:20 Td (adult), 2 Lf tetanus toxoid, preservative free, adsorbed 11/13/2002 completed Azul Almejere null, [facility] 03/15/2023 15:30:20 Hep B, adult 07/26/2014 completed Azul Almejere null, [facility] 03/15/2023 15:30:20 Hep B, adult 12/04/2014 completed Azul Almejere null, [facility] 03/15/2023 15:30:20 Hep B, adult 04/08/2014 completed Azul Almejere null, [facility] 03/15/2023 15:30:20 Influenza, split virus, quadrivalent, PF 06/08/2019 completed Azul Almejere null, [facility] 03/15/2023 15:30:20 Influenza, split virus, quadrivalent, PF 01/27/2021 completed Azul Almejere null, [facility] 03/15/2023 15:30:20 Influenza, split virus, quadrivalent, PF 03/07/2017 completed Azul Almejere null, [facility] 03/15/2023 15:30:20 Influenza, split virus, quadrivalent, PF 04/08/2014 completed Azul Almejere null, [facility] 03/15/2023 15:30:20 Influenza, split virus, quadrivalent, PF 04/09/2016 completed Azul Almejere null, [facility] 03/15/2023 15:30:20 Influenza, split virus, quadrivalent, PF 04/10/2015 completed Azul Almejere null, [facility] 03/15/2023 15:30:20 Influenza, split virus, quadrivalent, PF 04/18/2018 completed Azul Almejere null, [facility] 03/15/2023 15:30:20 Influenza, MDCK, quadrivalent, PF 02/18/2022 completed Azul Almejere null, [facility] 03/15/2023 15:30:28 COVID-19, mRNA, LNP-S, PF, 100 mcg/0.5mL dose or 50 mcg/0.25mL dose 08/14/2021 completed LAURI Soto [facility] 03/15/2023 15:30:28 COVID-19, mRNA, LNP-S, bivalent, PF, 50 mcg/0.5 mL or 25mcg/0.25 mL dose 02/18/2022 completed LAURI Soto [facility] 03/15/2023 15:30:28 Past Encounters Encounter ID Performer Location Encounter Start Date Encounter Closed Date Diagnosis/Indication Diagnosis SNOMED-CT Code [id number] Jordan Reno MD [facility] [address] [facility],[address] [place] [phone] 10/05/2023 08:38:53 10/05/2023 11:19:05 Lower urinary tract symptoms due to benign prostatic hypertrophy [id number] Acquired phimosis 048145 009 Blood in urine [id number] Health Concerns Section Related Observation LastModified by Organization Detai ls LastModified Time None Recorded Concern Status LastModified by Organization Details LastModified Time None Recorded Payers Encounter Date Sequence Insurance Name Policy Number Policy Schmidt Covered Member ID Schmidt Member ID Guarantor Name 10/05/2023 1 [employer] (PPO) [id number] Riddhi Low [id number] Yasir Low Notes Date Note Type Note Provider Name and Address Organization Details Recorded Time 10/05/2023 text/html HPI Notes: 0: Patient was seen in consultation at [facility] on 12/28/2019 after he was transferred from [place] because they were unable to place a Meyers catheter. He is diabetic and has severe phimosis. He has been not been able to retract his foreskin for more than 20 years. The foreskin was extremely swollen but I was able to place a catheter after dilating the tip of the prepuce and placing a wire. Initially had some renal insufficiency due to temporary catheter obstruction, evaluated at [facility] and this improved with catheter drainage. He has also seen Dr. Brady from nephrology for this. 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 Unfortunately he was unable to urinate after surgery and eventually had a Meyers catheter placed in the emergency room at [place]. He remains with a Meyers catheter. He had severe retention when he was first evaluated back on December 27. He had a renal insufficiency that resolved with a Meyers. He presents today for counseling and discussion. 02/11/20: He has been self catheterizing once or twice daily for an average of about 300 to 600 cc. He also typically voids about 5 or 6 times per day for a volume of 350 to 500 cc. Renal ultrasound shows normal kidneys with a postvoid residual of 78 mL. 05/16/20: He has been doing much better now and has stopped self catheterizing as his postvoid residuals have been nearly 0. Postvoid residual scan today is 0 mL. His recent creatinine was 1.35, which is much improved from previous. Today I reviewed his recent notes and outside labs from Dr. Hogue with [facility]. 05/18/21: He has not been catheterizing any longer for about the last year. He does have weak stream and takes tamsulosin 0.8 mg daily. Nocturia x1. Review of his creatinine from [facility] on 03/30/2021 is 1.32. Postvoid residual today 300 mL. No further problems related to his foreskin. No recent prostate cancer screening. Last PSA was 0.25 in 2017. 06/23/22: He follows up today with a recent history of gross hematuria and clot passage about 2 weeks ago. I reviewed the recent clinic notes from Dr. Hogue dated 06/07/2022. He also had a urine culture at that time that was negative but showed 10-50,000 mixed species. Most recent PSA was 0.3 on 06/07/2022. Significant pyuria on the urinalysis. He continues to have symptoms of frequency and bladder pressure but the hematuria has subsided. His last imaging was a CT abdomen and pelvis without contrast that was negative on 2019. He temporarily had stopped his tamsulosin but has now restarted this. His postvoid residual in our office last week was 0. Urinalysis today shows small leukocytes and trace blood. 10/05/23: Overall he is doing well with no recurrent hematuria or UTIs. He had recent back surgery and had a Meyers placed for a while. He is sitting to void at times because of splaying of his urine but feels that he is emptying well. Postvoid residual today is 6 mL. He has been discharged from Dr. Brady's clinic with nephrology, and is pleased about this. Recent PSA 0.25 on 08/26/2023. AUA symptom score 7, bother 4. Jordan Reno MD [address] [place] [address], [phone], [facility] 10/05/2023 10:02:31
--- OUTSIDE RECORDS SUMMARY | 2023-12-16 11:31 | XMS_ITS | Data Portability ---
[facility] Organization [facility] Address [address] [place] [address] Care Team Providers Care Construction Analyst Name Role Phone MARCO HOGUE Primary Care Provider [phone] Assessment No assessment recorded. Plan of Treatment Reminders Order Date Submit Date Provider Last Modified By Organization Details Last Modified Time Details Appointments None recorded. Lab creatinine , serum or plasma 2019 021 [email or web address] Not available 1 14:52:05 urinalysis , dipstick 2022 023 [email or web address] [facility], [address], [address], [place], [address], 3 12:07:50 Referral None recorded. Procedures bladder scan (PROC) 2020 021 [email or web address] [facility], [address], [address], [place], [address], 1 13:06:59 Surgeries None recorded. Imaging US, kidney 2019 021 [facility], [address] [place] [place], [address], 1 11:39:36 Medication Orders cefdinir 300 mg capsule 2022 023 [email or web address] [id number], [address], [place], [id number], 08:48:25 Patient TargetsNo targets recorded. Patient Instructions Encounter Date Encounter Id Patient Instructions Last Modified By Organization Details Last Modified Time 06/14/2022 [id number] Informed patient to keep appointment and followup with Dr. Reno on 07/14/2022. [email or web address] Not available 06/14/2022 17:23:34 Reason for Referral None Reported. Results Created Date Observation Date Name Description Value Unit Range Abnormal Flag LastModifiedBy Organization Detail LastModifiedTime 05/16/2020 bladd er scan (PROC ) Volume (in mL) 0ml Not Available [address] [place], [place], [address], 05/16/2020 13:06:39 06/23/19 23 06/23/2022 urina lysis , dipst ick Color-Status Yellow Not Available [address] [place], [place], [address], 06/23/2022 11:34:50 06/23/19 23 06/23/2022 urina lysis , dipst ick Clarity-Stat us Clear Not Available [address] [place], [place], [address], 06/23/2022 11:34:50 06/23/19 23 06/23/2022 urina lysis , dipst ick Ketones-Stat us 5 Not Available [address] [place], [place], [address], 06/23/2022 11:34:50 06/23/19 23 06/23/2022 urina lysis , dipst ick Blood-Status Trace Not Available [address] [place], [place], [place], [address], 06/23/2022 11:34:50 06/23/19 23 06/23/2022 urina lysis , dipst ick Leuko-Status Small Not Available [facility] [place] [address], [place], [address], 06/23/2022 11:34:50 05/16/19 21 bladd er scan (PROC ) No observ ation record ed. [email or web address] [facility] [address], [place], [address], 05/16/2020 14:24:12 05/25/19 22 05/18/2021 bladd er scan (PROC ) No observ ation record ed. BARCODE Not Available 05/25/2021 15:05:11 06/28/19 23 06/28/2022 CT, abdom en + pelvi s, w/wo contr ast EXAM: CT, ABDOME N + PELVIS , W/WO CONTRA ST [facility] DATE/T DAGO: 023 10:00 AM INDICA TION: Hematu jigar, unspec ified COMPAR RADHA: None. TECHNI QUE: CT scan of the abdome n and pelvis was perfor med before and after inject ion of IV contra st. Multip lanar reform ats were obtain ed. Dose reduct ion techni ques were used. CONTRA ST: OMNI 300 100 ML FINDIN GS: LOWER CHEST: Puncta te calcif ied granul malick in the right lower lobe. HEPATO BILIAR Y: Hepati c steato sis. No focal hepati c masses . PANCRE : Normal . SPLEEN : Normal . ADRENA L GLANDS : Normal . KIDNEY S/BLAD ESTHER: RIGHT: No calcul i, hydron ephros is or suspic ious renal cortic al masses . No fillin g defect s in the renal collec ting system and ureter . LEFT: No calcul i or hydron ephros is. Subcen timete r hypode nse lesion s in the renal cortex are too small to adequa tely charac terize but may be cysts, requir ing no specif ic follow -up. No fillin g defect s in the renal collec ting system and ureter . URINAR Y BLADDE R: No calcul i, focal areas of wall thicke kenneth or fillin g defect s. BOWEL: No obstru ction or inflam matory change . LYMPH NODES: No lympha denopa thy. VASCUL ATURE: No abdomi nal aortic aneury sm. PELVIC ORGANS : No pelvic masses . No signif icant prosta tomega ly. MUSCUL OSKELE NANCY: No suspic ious lesion s in the bones. Degene rative change s in the lumbar spine. IMPRES ISHAN: 1. No urinar y system calcul i, suspic ious renal masses , hydron ephros is or urothe lial lesion s in the upper tracts . No defini te bladde r masses . 2. Hepati c steato sis. This report was electr onical ly interp reted by: Debbie Block MD on 2022 at 13:36 [facility] [address], [place], [address], 06/28/2022 18:25:12 11/01/19 24 10/05/2023 bladd er scan (PROC ) No observ ation record ed. BARCODE Not Available 11/01/2023 17:25:13 Result Notes None recorded. Problems Name Status Onset Date Resolution Date Notes Provider Name and Address Organization Details Recorded Time Sensation as if urinary bladder still full Active 06/14/[address] [facility] 06/14/2022 17:20:50 Acute cystitis Active 06/23/19 Jordan Reno MD [address], [place], [address], [facility] 06/23/2022 12:20:02 Lower urinary tract symptoms due to benign prostatic hypertrophy Active 06/23/19 Jordna Reno MD [address], [place], [address], [facility] 06/23/2022 12:47:01 Blood in urine Active 06/25/19 23 Jordan Reno MD [address] [place] [address],[address], [place], [address], [facility] 06/25/2022 08:59:56 Acquired phimosis Active 10/05/19 24 Jordan Reno MD [address], [place], [address], [facility] 10/05/2023 10:01:29 Problem Notes None recorded. Procedures Surgical History Date Name Laterality Status Provider Name and Address Organization Details Recorded Time 10/05/19 24 COMPLEX VISIT completed Jordan Reno MD [address], [place], [address], [facility] 10/05/2023 10:02:06 10/05/19 24 Bladder Scan completed Carla Ng null, [facility] 10/05/2023 08:50:43 06/14/19 23 Bladder Scan completed Marilin Lauren null, [facility] 06/14/2022 17:22:47 05/18/19 22 Bladder Scan completed Riddhi Romero null, [facility] 05/18/2021 15:23:13 01/16/20 20 CIRCUMCISION (SURG) completed Nisreen Pike null, [facility] 01/21/2020 09:06:50 10/13/19 14 Colonoscopy completed Myriam Ruelas null, [facility] 2020 09:48:44 procedure on foot completed Delicia Burnett null, [facility] 01/10/2020 16:57:33 Imaging Results Imaging Date Name Status [facility] by [facility] Details LastModified Time 05/16/2020 bladder scan (PROC) completed [email or web address] [facility] [address], [place], [address], 05/16/2020 14:24:12 05/18/2021 bladder scan (PROC) completed BARCODE Information not available 05/25/2021 15:05:11 06/28/2022 CT, abdomen + pelvis, w/wo contrast completed [facility] [place], [address], 06/28/2022 18:25:12 10/05/2023 bladder scan (PROC) completed BARCODE Information not available 11/01/2023 17:25:13 Procedure Notes None recorded. Medical Equipment None [...] and Address Organization Details Last Updated DateTime 06/23/2022 193.04 cm 35.3 kg/m2 971523.[address] [facility] 06/23/2022 11:28:57 Date Recorded Body height Body mass index (BMI) Body weight Provider Name and Address Organization Details Last Updated DateTime 10/05/2023 193.04 cm 35.3 kg/m2 397227.79 g Carla May [facility] 10/05/2023 08:47:45 Date Recorded Body height Body mass index (BMI) Body weight Provider Name and Address Organization Details Last Updated DateTime 05/16/2020 193.04 cm 35.3 kg/m2 776015.[address] [facility] 05/16/2020 12:00:14 Date Recorded Body height Body mass index (BMI) Body weight Provider Name and Address Organization Details Last Updated DateTime 05/18/2021 193.04 cm 35.3 kg/m2 745360.[address] [facility] 05/18/2021 14:59:23 Social History Question Answer Notes LastModified by Organizat ion Details LastModified Time Tobacco Smoking Status Never Smoker Delicia Burnett [facility] 01/10/2020 16:57:16 What Is Your Level Of Alcohol Consumption? Occasional [email or web address] Information not available 10/05/2023 What Is Your Level Of Caffeine Consumption? Occasional [email or web address] Information not available 10/05/2023 Do You Or Have You Ever Used E-cigarettes Or Vape? Never Used Electronic Cigarettes [email or web address] Information not available 01/10/2020 What Was The Date Of Your Most Recent Tobacco Screening? 10/05/2023 [email or web address] Information not available 10/05/2023 Have You Ever Been Counseled For Unhealthy Alcohol Use? No [email or web address] Information not available 10/05/2023 Do You Use Any Illicit Or Recreational Drugs? No [email or web address] Information not available 10/05/2023 Has Tobacco Cessation Counseling Been Provided? No [email or web address] Information not available 10/05/2023 Do You Or Have You Ever Used Any Other Forms Of Tobacco Or Nicotine? No [email or web address] Information not available 10/05/2023 How Many Days In The Past Year Have You Consumed 5 Or More Drinks? 0 [email or web address] Information no t available 10/05/2023 Sex: Unknown Functional Status None recorded. Mental Status None recorded. Family History Nothing Reported. Medical History Condition Response Diabetes Y Sexually Transmitted Infection N Other N Bleeding Disorder N High Blood Pressure Y Kidney Stones N Cancer N Lung Disease N Depression N High Cholesterol Y GERD/Acid Reflux N Heart Disease N Immunizations Vaccine Type Date Status Provider Name and Address Organization Details Recorded Time COVID-19, mRNA, LNP-S, PF, monika-sucrose, 30 mcg/0.3 mL 02/17/2023 completed Carla September null, [facility] 10/05/2023 08:47:49 Influenza, split virus, quadrivalent, PF 02/17/2023 completed Carla September null, [facility] 10/05/2023 08:47:49 Influenza, MDCK, quadrivalent, PF 01/25/2020 completed Azul Marlow null, [facility] 03/15/2023 15:30:20 zoster recombinant 11/08/2019 completed Azul Marlow null, [facility] 03/15/2023 15:30:20 zoster recombinant 01/30/2020 completed Azul Marlow null, [facility] 03/15/2023 15:30:20 COVID-19, mRNA, LNP-S, PF, 100 mcg/0.5mL dose or 50 mcg/0.25mL dose 03/17/2021 completed Azul Marlow null, [facility] 03/15/2023 15:30:20 COVID-19 vaccine, vector-nr, rS-Ad26, PF, 0.5 mL 08/09/2020 completed Azul Marlow null, [facility] 03/15/2023 15:30:20 pneumococcal polysaccharide PPV23 11/13/2002 completed Azul Marlow null, [facility] 03/15/2023 15:30:20 Tdap 08/06/2013 completed Auzl Marlow null, [facility] 03/15/2023 15:30:20 Influenza, split virus, trivalent, preservative 03/03/2010 completed Azul Marlow null, [facility] 03/15/2023 15:30:20 Td (adult), 2 Lf tetanus toxoid, preservative free, adsorbed 11/13/2002 completed Azul Marlow null, [facility] 03/15/2023 15:30:20 Hep B, adult 07/26/2014 completed Azul Marlow null, [facility] 03/15/2023 15:30:20 Hep B, adult 12/04/2014 completed Azul Marlow null, [facility] 03/15/2023 15:30:20 Hep B, adult 04/08/2014 completed Azul Fuentesre null, [facility] 03/15/2023 15:30:20 Influenza, split virus, quadrivalent, PF 06/08/2019 completed Azul Alfredore null, [facility] 03/15/2023 15:30:20 Influenza, split virus, quadrivalent, PF 01/27/2021 completed Azul Alfredore null, [facility] 03/15/2023 15:30:20 Influenza, split virus, quadrivalent, PF 03/07/2017 completed Azul Alfredore null, [facility] 03/15/2023 15:30:20 Influenza, split virus, quadrivalent, PF 04/08/2014 completed Azul Wildegregre null, [facility] 03/15/2023 15:30:20 Influenza, split virus, quadrivalent, PF 04/09/2016 completed Azul Fuentesre null, [facility] 03/15/2023 15:30:20 Influenza, split virus, quadrivalent, PF 04/10/2015 completed Azul Almejere null, [facility] 03/15/2023 15:30:20 Influenza, split virus, quadrivalent, PF 04/18/2018 completed Azul Almejere null, [facility] 03/15/2023 15:30:20 Influenza, MDCK, quadrivalent, PF 02/18/2022 completed Azul Fuentesre null, [facility] 03/15/2023 15:30:28 COVID-19, mRNA, LNP-S, PF, 100 mcg/0.5mL dose or 50 mcg/0.25mL dose 08/14/2021 completed Azul Fuentesre null, [facility] 03/15/2023 15:30:28 COVID-19, mRNA, LNP-S, bivalent, PF, 50 mcg/0.5 mL or 25mcg/0.25 mL dose 02/18/2022 [facility] 15:30:28 Past Encounters Encounter ID Performer Location Encounter Start Date Encounter Closed Date Diagnosis/Indication Diagnosis SNOMED-CT Code [id number] [facility] [address] [place] [address] 01/10/2020 15:51:53 01/11/2020 04:01:36 Acquired phimosis [id number] Jordan Reno MD [address],[place] [address] [place] [address] 01/23/2020 09:35:20 02/11/2020 11:30:15 Acquired phimosis 578775426 Retention of urine 39393 4002 [id number] Jordan Reno MD [address],[place] [address] [place] [address] 02/11/2020 09:38:13 03/04/2020 12:06:24 Retention of urine 905660132 Acquired phimosis 420409 009 [id number] Jordan Reno MD [address] [address] 05/16/2020 11:51:22 05/23/2020 11:39:36 Retention of urine 670164769 Acquired phimosis 815887 009 [id number] Jordan Reno MD [address],[place] [address] [place] [address] 05/18/2021 14:50:01 05/20/2021 10:08:15 Retention of urine 730424820 Acquired phimosis 879044 009 [id number] Marilin Lauren [facility] [address] [place] [id number] 06/14/2022 15:59:58 06/16/2022 15:50:09 Sensation as if urinary bladder still full [id number] Jordan Reno MD [address] [facility] [place] [address] 06/23/2022 11:05:07 06/25/2022 16:11:07 Blood in urine 75816180 Acute cystitis 84187136 Lower urin vinod tract symptoms due to benign prostatic hypertrophy [id number] Jordan Reno MD [facility] [address] [place] [address] 10/05/2023 08:38:53 10/05/2023 11:19:05 Lower urinary tract symptoms due to benign prostatic hypertrophy [id number] Acquired phimosis 716799 009 Blood in urine 21995300 Health Concerns Section Related Observation LastModified by Organization Detai ls LastModified Time None Recorded Concern Status LastModified by Organization Details LastModified Time None Recorded Advance Directives Directive None Recorded Payers Encounter Date Sequence Insurance Name Policy Number Policy Schmidt Covered Member ID Schmidt Member ID Guarantor Name 05/16/2020 1 [employer] (PPO) [id number] Riddhi Slater Feddema [id number] Yasir Saleh Feddema 05/18/2021 1 [employer] (PPO) [id number] Riddhi Slater Feddema [id number] Yasir Saleh Feddema 06/14/2022 1 [employer] (PPO) [id number] Riddhi Slater Feddema [id number] Yasir Saleh Feddema 06/23/2022 1 [employer] (PPO) [id number] Riddhi Slater Feddema [id number] Yasir Saleh Feddema 10/05/2023 1 [employer] (PPO) [id number] Riddhi Bryon Feddema [id number] Yasir Low Notes Date Note Type Note Provider Name and Address Organization Details Recorded Time 05/16/2020 text/html HPI Notes: 0: Patient was seen in consultation at [facility] on 12/28/2019 after he was transferred from [place] because they were unable to place a Meyers catheter. He is diabetic and has severe phimosis. He has been not been able to retract his foreskin for more than 20 years. The foreskin was extremely swollen no was able to place a catheter after dilating the tip of the prepuce and placing a wire. Initially had some renal insufficiency due to temporary catheter obstruction, evaluated at [facility] and this improved with catheter drainage. He has also seen Dr. Brady from nephrology for this. 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 Unfortunately he was unable to urinate after surgery and eventually had a Meyers catheter placed in the emergency room at [facility]. He remains with a Meyers catheter. He had severe retention when he was first evaluated back on December 27. He had a renal insufficiency that resolved with a Meyesr. He presents today for counseling and discussion. [...] and outside labs from Dr. Hogue with [facility]. Jordan Reno MD [address] [place] [address],[address], [place], [address] 05/16/2020 13:07:22 05/18/2021 text/html HPI Notes: 0: Patient was seen in consultation at [facility] on 12/28/2019 after he was transferred from [facility] because they were unable to place a [...] due to temporary catheter obstruction, evaluated at [facility] and this improved with catheter drainage. He has also seen Dr. Brady from nephrology for this. 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 Unfortunately he was unable to urinate after surgery and eventually had a Meyers catheter placed in the emergency room at [facility]. He remains with a Meyers catheter. He [...] and outside labs from Dr. Hogue with [facility]. 05/18/21: He has not been catheterizing any longer for about the last year. He does have weak stream and takes tamsulosin 0.8 mg daily. Nocturia x1. Review of his creatinine from [facility] on 03/30/2021 is 1.32. Postvoid residual today 300 mL. No further problems related to his foreskin. No recent prostate cancer screening. Last PSA was 0.25 in 2017. Jordan Reno MD [address] [place] [address],[address], [place], [address] 05/18/2021 17:51:02 06/14/2022 text/html HPI Notes: 61 YO MALE present for PVR. C/o incomplete bladder. Marilin proctor [facility] 06/14/2022 17:25:00 06/23/2022 text/html HPI Notes: 0: Patient was seen in consultation at [facility] on 12/28/2019 after he was transferred from [facility] because they were unable to place a [...] due to temporary catheter obstruction, evaluated at [facility] and this improved with catheter drainage. He has also seen Dr. Brady from nephrology for this. 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 Unfortunately he was unable to urinate after surgery and eventually had a Meyers catheter placed in the emergency room at [facility]. He remains with a Meyers catheter. He [...] and outside labs from Dr. Hogue with [facility]. 05/18/21: He has not been catheterizing any longer for about the last year. He does have weak stream and takes tamsulosin 0.8 mg daily. Nocturia x1. Review of his creatinine from [facility] on 03/30/2021 is 1.32. Postvoid residual today [...] today shows small leukocytes and trace blood. Jordan Reno MD [address], [place], [address], [place] [facility] 06/23/2022 12:48:56 10/05/2023 text/html HPI Notes: 0: Patient was seen in consultation at [facility] on 12/28/2019 after he was transferred from [facility] because they were unable to place a [...] due to temporary catheter obstruction, evaluated at [facility] and this improved with catheter drainage. He has also seen Dr. Brady from nephrology for this. 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 Unfortunately he was unable to urinate after surgery and eventually had a Meyers catheter placed in the emergency room at [facility]. He remains with a Meyers catheter. He [...] and outside labs from Dr. Hogue with [facility]. 05/18/21: He has not been catheterizing any longer for about the last year. He does have weak stream and takes tamsulosin 0.8 mg daily. Nocturia x1. Review of his creatinine from [facility] on 03/30/2021 is 1.32. Postvoid residual today [...] score 7, bother 4. Jordan Reno MD [address] [place] [address],[address], [place], [address], [facility] 10/05/2023 10:02:31
--- NOTE | 2023-12-16 12:16 | W.ANESCHARGE ---
Anesthesia Charges Start Date/Time Anesthesia Start Date: 12/16/23 Anesthesia Start Time: 12:35 Stop Date/Time Anesthesia Stop Date: 12/16/23 Anesthesia Stop Time: 13:04
--- NOTE | 2023-12-16 13:05 | W.ANESCHARGE ---
Anesthesia Charges Start Date/Time Anesthesia Start Date: 12/16/23 Anesthesia Start Time: 12:35 Stop Date/Time Anesthesia Stop Date: 12/16/23 Anesthesia Stop Time: 13:04
== END 2023-12-16 11:29 | disposition home or self-care (01) ==
LOC: OP CLINIC 11:29
PROVIDERS: PCP Family Medicine; Visit Provider Internal Medicine Gastroenterology
DX: Z12.11 Encounter for screening for malignant neoplasm of colon (principal); K63.5 Polyp of colon
CPT/HCPCS: 00811; 45380; 88305; J2704

== ENCOUNTER 2024-05-07 10:08 | Emergency (ER) | payer OTHER, SELFPAY ==
[2024-05-07 11:14] VITALS: BP 135/84; PULSE 94; RESP 16; TEMP 36; O2SAT 100; BMI 35.9
--- NOTE | 2024-05-07 11:35 | CRLHL7_ITS ---
For Patients: As a result of the Century Cures Act, medical imaging exams and procedure reports are released immediately into your electronic medical record. You may view this report before your referring provider. If you have questions, please contact your health care provider. Indication: FALL / PAIN lower medial RIGHT leg Technique: Two views right tibia and fibula Comparison: None Findings: Degenerative changes at the hindfoot and midfoot. Subtle nondisplaced fracture of the proximal fibular diaphysis. Vascular calcifications. Degenerative changes at the knee. The distal tibia appears intact. Impression: Nondisplaced proximal fibular diaphyseal fracture. No discernible distal tibial fracture. Dictated by Bereket Kign MD @ 05/07/2024 12:29:48 PM (Electronically Signed)
--- NOTE | 2024-05-07 13:23 | ED_ITS ---
HPI - Fall General Chief Complaint: Fall/Minor Trauma Stated Complaint: fall - (R) leg injury Time Seen by Provider: 05/07/24 12:54 History of Present Illness HPI Narrative: This 63-year-old male comes in with pain in his right lower leg after a fall that occurred today. He was able to get up and ambulate after the fall. He is reporting some discomfort in the lower aspect of his right leg just above the ankle and on the lateral side. He states that he had back surgery and neck andrew anastacia both in the last year and has been doing well since then. He did not hit his head or have loss of consciousness. Related Data Home Medications ?Medication ?Instructions ?Recorded ?Confirmed atorvastatin 40 mg tablet 40 mg PO DAILY 03/13/23 05/07/24 glimepiride 4 mg tablet 4 mg PO BID 03/13/23 05/07/24 levothyroxine 125 mcg tablet 125 mcg PO DAILY 03/13/23 05/07/24 lisinopril 10 mg tablet 10 mg PO DAILY 03/13/23 05/07/24 metformin 500 mg tablet 500 mg PO 3XD 03/13/23 05/07/24 semaglutide 0.25 mg or 0.5 mg (2 mg subcut 03/13/23 mg/3 mL) subcutaneous pen injector (Ozempic) sitagliptin phosphate 100 mg 100 mg PO DAILY 03/13/23 05/07/24 tablet (Januvia) tamsulosin 0.4 mg capsule 0.8 mg PO DAILY 03/13/23 05/07/24 Previous Rx's ?Medication ?Instructions ?Recorded ketorolac 10 mg tablet 10 mg PO Q8H 5 days #15 tabs 05/07/24 Allergies Allergy/AdvReac Type Severity Reaction Status Date / Time No Known Drug Allergies Allergy Verified 05/07/24 11:20 Review of Systems Status of ROS: Reports: 10 or more systems reviewed and unremarkable except as noted in History and below Narrative: Constitutional: No fevers, no weight gain or loss. Eyes: No discharge. No vision changes. HENT: No congestion, no sore throat, no ear pain. Cardiovascular: No chest pain, no palpitations. Respiratory: No shortness of breath, no wheezes, no cough. Gastrointestinal: No abdominal pain, no vomiting, no diarrhea. Genitourinary: No dysuria, no hematuria. Musculoskeletal: Normal range of motion. Skin: No rashes, no pruritis. Neurological: No dizziness, weakness, sensory change, speech change. Endo/Heme/Allergies: No bruising or bleeding. No polydipsia. Pysch: no suicidality, no anxiety, no insomnia. All other systems reviewed and are negative. Exam Narrative: Exam Narrative: Constitutional: Well-developed, well-nourished, no acute distress. HEENT: Normocephalic, atraumatic. Neck: Normal range of motion. Nontender. Supple. Heart: Intact distal pulses. Lungs: No chest discomfort. No wheezes, rhonchi, or rales. Abdomen: Nontender. Back: Normal range of motion. Extremities: Diffuse pain in the right lower leg on the lateral aspect between the area above the ankle to about midway toward the knee. No pain or tenderness at his knee joint. Skin: Intact. No rash. Warm. No erythema or pallor. Neurologic: No altered sensation. No weakness. Alert and oriented. Psychiatric: No suicidality. No anxiety or depression. No insomnia. Nursing notes and vitals signs are reviewed. Const: Vital Signs, click to edit/add: Vital Signs - 24 hr 05/07/24 11:14 Temperature 96.8 F L Pulse Rate [Pulse Oximeter] 94 Respiratory Rate 16 Blood Pressure [Ri ght Upper Arm] 135/84 Pulse Oximetry 100 Oxygen Delivery Me thod Room Air Course Vital Signs Vital signs: Initial Vital Signs Temperature 96.8 F L 05/07/24 11:14 Temperature Source Temporal Artery Scan 05/07/24 11:14 Pulse Rate 94 05/07/24 11:14 Respiratory Rate 16 05/07/24 11:14 Blood Pressure 135/84 05/07/24 11:14 Blood Pressure Mean 101 05/07/24 11:14 Blood Pressure Position Standing 05/07/24 11:14 Pulse Oximetry 100 05/07/24 11:14 Oxygen Delivery Method Room Air 05/07/24 11:14 Vital Signs Temperature 96.8 F L 05/07/24 11:14 Pulse Rate 94 05/07/24 11:14 Respiratory Rate 16 05/07/24 11:14 Blood Pressure 135/84 05/07/24 11:14 Pulse Oximetry 100 05/07/24 11:14 Oxygen Delivery Method Room Air 05/07/24 11:14 Temperature 96.8 F L 05/07/24 11:14 Pulse Rate 94 05/07/24 11:14 Respiratory Rate 16 05/07/24 11:14 Blood Pressure 135/84 05/07/24 11:14 Pulse Oximetry 100 05/07/24 11:14 Oxygen Delivery Method Room Air 05/07/24 11:14 MDM - Fall MDM Narrative Medical decision making narrative: This patient comes in with injury to his right lower extremity as described a sloane. X-ray images of the tibia and fibula are obtained. There is a subtle possibility of a proximal fibular fracture according to radiology report. The patient has no tenderness when palpating in this area. His exam seems to be such that it is unlikely that there is actually a fracture in this area. He does have some tenderness down toward his ankle but x-ray images are reassuring in this area. Patient does have crutches and a walker at home that he can use as needed for assistants in ambulating. He has been able to ambulate since this fall. I did provide a prescription for Toradol and encouraged him to use crutches or walker as needed and increase activity as tolerated. Discharge Plan Discharge Clinical Impression: Leg injury Patient Disposition: Home w/ Parent or Adult Condition: Unchanged Additional Instructions: Use crutches or walker as needed for assistance in ambulating and increase activity as tolerated. Take medication also as needed and directed for pain. Follow up with MD return if worsening. Prescriptions: New ketorolac 10 mg tablet 10 mg PO Q8H 5 Days Qty: 15 0RF No Action atorvastatin 40 mg tablet 40 mg PO DAILY metformin 500 mg tablet 500 mg PO 3XD tamsulosin 0.4 mg capsule 0.8 mg PO DAILY levothyroxine 125 mcg tablet 125 mcg PO DAILY lisinopril 10 mg tablet 10 mg PO DAILY glimepiride 4 mg tablet 4 mg PO BID Januvia 100 mg tablet 100 mg PO DAILY Ozempic 0.25 mg or 0.5 mg (2 mg/3 mL) pen injector subcut Follow Up/Referrals: Luca Hogue MD [Primary Care Provider] - Stand [facility]one [facility]
--- OUTSIDE RECORDS SUMMARY | 2024-05-07 13:30 | XMS_ITS | Data Portability ---
Author Organization [facility] Address [address] [place] [address] Care Team Providers Care Cage Loader Name Role Phone MARCO HOGUE Primary Care Provider Assessment No assessment recorded. Plan of Treatment Reminders Order Date Submit Date Provider Last Modified By Organization Details Last Modified Time Details Appointments None recorded. Lab creatinine , serum or plasma 2019 021 [email or web address] Not available 1 14:52:05 urinalysis , dipstick 2022 023 [email or web address] [facility], [address] [place] [facility] [address], [address], [place], [address], 3 12:07:50 Referral None recorded. Procedures bladder scan (PROC) 2020 021 [email or web address] [facility], [address] [place] [facility], [address], [place], [address], 1 13:06:59 Surgeries None recorded. Imaging US, kidney 2019 021 [facility], [address] [facility] [place], [address], 1 11:39:36 Medication Orders [email or web address] 300 mg capsule 2022 [email or web address] [id number], [address], [place], [phone], 08:48:25 Patient TargetsNo targets recorded. Patient Instructions Encounter Date Encounter Id Patient Instructions Last Modified By Organization Details Last Modified Time 06/14/2022 [id number] Informed patient to keep appointment and followup with Dr. [place] on 07/14/2022. [email or web address] Not available 06/14/2022 17:23:34 Reason for Referral None Reported. Results Created Date Observation Date Name Description Value Unit Range Abnormal Flag Note LastModifiedBy Organization Detail LastModifiedTime 05/16/2020 bladd er scan (PROC ) Volume (in mL) 0ml Not Available [address], [place], [place], [address], 05/16/2020 13:06:39 06/23/19 23 06/23/2022 urina lysis , dipst ick Color-Status Yellow Not Available [address], [place], [address], 06/23/2022 11:34:50 06/23/19 23 06/23/2022 urina lysis , dipst ick Clarity-Stat us Clear Not Available [address], [place], [address], 06/23/2022 11:34:50 06/23/19 23 06/23/2022 urina lysis , dipst ick Ketones-Stat us 5 Not Available [address], [place], [address], 06/23/2022 11:34:50 06/23/19 23 06/23/2022 urina lysis , dipst ick Blood-Status Trace Not Available [address] [place], [place], [address], 06/23/2022 11:34:50 06/23/19 23 06/23/2022 urina lysis , dipst ick Leuko-Status Small Not Available [facility] [address], [place], [address], 06/23/2022 11:34:50 05/16/19 21 bladd er scan (PROC ) No observ ation record ed. [email or web address] _[facility] [address], [place], [address], 05/16/2020 14:24:12 05/25/19 22 05/18/2021 bladd er scan (PROC ) No observ ation record ed. BARCODE Not Available 2021 15:05:11 06/28/19 23 06/28/2022 CT, abdom en + pelvi s, w/wo contr ast EXAM: CT, ABDOME N + PELVIS , W/WO CONTRA ST [facility] [place] DATE/T DAGO: 023 10:00 AM INDICA TION: [...] Debbie Block MD on 2022 at 13:36 [facility] [address], [place], [address], 06/28/2022 18:25:12 11/01/19 24 10/05/2023 bladd er scan (PROC ) No observ ation record ed. BARCODE Not Available 2023 17:25:13 Result Notes None recorded. Problems Name Problem SNOMED Code Status Onset Date Resolution Date Notes Provider Name and Address Organization Details Recorded Time Sensation as if urinary bladder still full 990266091 Active 2022 Marilin proctor, [facility] 3 17:20:50 Acute cystitis 41848313 Active 2022 Jordan [place] MD [address] [facility] [address], [place], [address] , [facility] 3 12:20:02 Lower urinary tract symptoms due to benign prostatic hypertroph y 6480868010326 1 Active 2022 Jordan [place] MD [address] [facility] [address], [place], [address] , [facility] 3 12:47:01 Blood in urine 74415214 Active 2022 Jordan [place] MD [address] [facility] [address], [place], [address] , [facility] 3 08:59:56 Acquired phimosis 574588206 Active 2023 Jordan [place] MD [address], [place], [address] , [facility] 4 10:01:29 Problem Notes None recorded. Procedures Surgical History Date Name Laterality Status Provider Name and Address Organization Details Recorded Time 10/05/19 24 COMPLEX VISIT completed Jordan [place] MD [address] [place] [address],[address], [place], [address], [facility] 10/05/2023 10:02:06 10/05/19 24 Bladder Scan completed Carla Ng [facility] 10/05/2023 08:50:43 06/14/19 23 Bladder Scan completed Marilin Lauren [facility] 06/14/2022 17:22:47 05/18/19 22 Bladder Scan completed Riddhi Romero [facility] 05/18/2021 15:23:13 01/16/20 20 CIRCUMCISION (SURG) completed Nisreen Pike [facility] 01/21/2020 09:06:50 10/13/19 14 Colonoscopy completed Myriam Ruelas [facility] 2020 09:48:44 procedure on foot completed Delicia Burnett [facility] 01/10/2020 16:57:33 Imaging Results Imaging Date Name Status LastModified by Organiz ation Details LastModified Time 05/16/2020 bladder scan (PROC) completed [email or web address] [facility] [address] [place] [facility] [address], [place], [address], 05/16/2020 14:24:12 05/18/2021 bladder scan (PROC) completed BARCODE Information not available 05/25/2021 15:05:11 06/28/2022 CT, abdomen + pelvis, w/wo contrast [place], [address], 06/28/2022 18:25:12 10/05/2023 bladder scan (PROC) completed [...] Updated DateTime 06/23/2022 193.04 cm 35.3 kg/m2 516080.[address] [facility] 06/23/2022 11:28:57 Date Recorded Body height Body mass index (BMI) Body weight Provider Name and Address Organization Details Last Updated DateTime 10/05/2023 193.04 cm 35.3 kg/m2 187076.79 g Carla Ng [facility] 10/05/2023 08:47:45 Date Recorded Body height Body mass index (BMI) Body weight Provider Name and Address Organization Details Last Updated DateTime 05/16/2020 193.04 cm 35.3 kg/m2 195497.[address] [facility] 05/16/2020 12:00:14 Date Recorded Body height Body mass index (BMI) Body weight Provider Name and Address Organization Details Last Updated DateTime 05/18/2021 193.04 cm 35.3 kg/m2 235888.[address] [facility] 05/18/2021 14:59:23 Social History Question Answer Notes LastModified by Organizat ion Details LastModified Time Tobacco Smoking Status Never Smoker [facility] 01/10/2020 16:57:16 What Is Your Level Of Alcohol Consumption? Occasional [email or web address] Information not available 10/05/2023 What Is Your Level Of Caffeine Consumption? Occasional [email or web address] Information not available 10/05/2023 Do You Or Have You Ever Used E-cigarettes Or Vape? Never Used Electronic Cigarettes [email or web address] Information not available 01/10/2020 What Was The Date Of Your Most Recent Tobacco Screening? 10/05/2023 [email or web address] Information not available 10/05/2023 Have You Ever Been Counseled For Unhealthy Alcohol Use? No [email or web address] Information not available 10/05/2023 Do You Use Any Illicit Or Recreational Drugs? No [email or web address] Information not available 10/05/2023 Has Tobacco Cessation Counseling Been Provided? No [email or web address] Information not available 10/05/2023 Do You Or Have You Ever Used Any Other Forms Of Tobacco Or Nicotine? No [email or web address] Information not available 10/05/2023 How Many Days In The Past Year Have You Consumed 5 Or More Drinks? 0 [email or web address] Information no t available 10/05/2023 Sex: Unknown Functional Status None recorded. Mental Status None recorded. Family History Nothing Reported. Medical History Condition Response Sexually Transmitted Infection N Diabetes Y Other N Bleeding Disorder N High Blood Pressure Y Kidney Stones N High Cholesterol Y GERD/Acid Reflux N Heart Disease N Cancer N Depression N Lung Disease N Immunizations Vaccine Type Date Status Note Provider Nam e and Address Organization Details Recorded Time COVID-19, mRNA, LNP-S, PF, monika-sucrose, 30 mcg/0.3 mL 3 completed Carla September null, [facility] 10/05/2023 08:47:49 Influenza, split virus, quadrivalent, PF 3 completed Carla September null, [facility] 10/05/2023 08:47:49 Influenza, MDCK, quadrivalent, PF 0 completed Azul Fuentesre null, [facility] 03/15/2023 15:30:20 zoster recombinant 0 completed Azul Romeejere null, [facility] 03/15/2023 15:30:20 zoster recombinant 0 completed Azul Fuentesre null, [facility] 03/15/2023 15:30:20 COVID-19, mRNA, LNP-S, PF, 100 mcg/0.5mL dose or 50 mcg/0.25mL dose 1 completed Azul Marlow null, [facility] 03/15/2023 15:30:20 COVID-19 vaccine, vector-nr, rS-Ad26, PF, 0.5 mL 1 [facility] 15:30:20 pneumococcal polysaccharide PPV23 3 completed Azul Marlow [facility] 03/15/2023 15:30:20 Tdap 4 completed Azul Fuentesre null, [facility] 03/15/2023 15:30:20 Influenza, split virus, trivalent, preservative 0 completed Azul Romeegregre null, [facility] 03/15/2023 15:30:20 Td (adult), 2 Lf tetanus toxoid, preservative free, adsorbed 3 completed [facility] 15:30:20 Hep B, adult 5 completed [facility] 15:30:20 Hep B, adult 5 completed Azul Almejere null, [facility] 03/15/2023 15:30:20 Hep B, adult 4 completed Azul Almejere null, [facility] 03/15/2023 15:30:20 Influenza, split virus, quadrivalent, PF 0 completed Azul Almejere null, [facility] 03/15/2023 15:30:20 Influenza, split virus, quadrivalent, PF 1 completed Azul Almejere null, [facility] 03/15/2023 15:30:20 Influenza, split virus, quadrivalent, PF 7 completed Azul Almejere null, [facility] 03/15/2023 15:30:20 Influenza, split virus, quadrivalent, PF 4 completed [facility] 15:30:20 Influenza, split virus, quadrivalent, PF 6 completed [facility] 03/15/[facility]23 15:30:20 Influenza, split virus, quadrivalent, PF 5 completed Azul Almejere null, [facility] 03/15/2023 15:30:20 Influenza, split virus, quadrivalent, PF 8 completed [facility] 03/15/[facility]23 15:30:20 Influenza, MDCK, quadrivalent, PF 2 completed [facility] 03/15/2023 15:30:28 COVID-19, mRNA, LNP-S, PF, 100 mcg/0.5mL dose or 50 mcg/0.25mL dose 2 completed Azul Almejere null, [facility] 03/15/2023 15:30:28 COVID-19, mRNA, LNP-S, bivalent, PF, 50 mcg/0.5 mL or 25mcg/0.25 mL dose 2 completed Azul Almejere null, [place] [facility] 03/15/2023 15:30:28 Past Encounters Encounter ID Performer Location Encounter Start Date Encounter Closed Date Diagnosis/Indication Diagnosis SNOMED-CT Code Diagnosis ICD10 Code [id number] [facility] [address] [place] [address] 01/10/2020 15:51:53 01/11/2020 04:01:36 Acquired phimosis 030804386 N47.1 [id number] Jordan [place] MD [address] [place] [address] 01/23/2020 09:35:20 02/11/2020 11:30:15 Acquired phimosis 725045949 N47.1 Retention of urine 31716 4002 R33.9 [id number] Jordan [place] MD [address] [address] 02/11/2020 09:38:13 03/04/2020 12:06:24 Retention of urine 044935331 R33.9 Acquired phimosis 770175 009 N47.1 [id number] Jordan [place] MD [address] [address] 05/16/2020 11:51:22 05/23/2020 11:39:36 Retention of urine 087245034 R33.9 Acquired phimosis 476357 009 N47.1 [id number] Jordan [place] MD [address] [place] [address] 05/18/2021 14:50:01 05/20/2021 10:08:15 Retention of urine 848105015 R33.9 Acquired phimosis 317199 009 N47.1 [id number] Marilin Lauren [facility] [address] [place] [id number] 06/14/2022 15:59:58 06/16/2022 15:50:09 Sensation as if urinary bladder still full 528631696 R39.14 [id number] Jordan [place] MD [facility] [address] [place] [facility] [place] [address] 06/23/2022 11:05:07 06/25/2022 16:11:07 Blood in urine 54976438 R31.9 Acute cystitis 31660629 N30.01 Lower urin vinod tract symptoms due to benign prostatic hypertrophy 7805655663 9101 N40.1 [id number] Jordan [place] MD [facility] [address] [facility] [place] [facility],[address] [place] [address] 10/05/2023 08:38:53 10/05/2023 11:19:05 Lower urinary tract symptoms due to benign prostatic hypertrophy 9070016377 9101 N40.1 Acquired phimosis 471298 009 N47.1 Blood in urine 72230406 R31.9 Health Concerns Section Related Observation LastModified by Organization Detai ls LastModified Time None Recorded Concern Status LastModified by Organization Details LastModified Time None Recorded Advance Directives Directive None Recorded Payers Encounter Date Sequence Insurance Name Policy Number Policy Schmidt Covered Member ID Schmidt Member ID Guarantor Name 05/16/2020 1 [employer] (PP[employer]) [id number] Riddhi Low [id number] Yasir Low 05/18/2021 1 [employer] (PPO) [id number] Riddhi Low [id number] Yasir Low 06/14/2022 1 [employer] (PPO) [id number] Riddhi Low [id number] Yasir Low 06/23/2022 1 [employer] (PPO) [id number] Riddhi Low [id number] Yasir Low 10/05/2023 1 [employer] (PPO) [id number] Riddhi Low [id number] Yasir Low Notes Date Note Type Note Provider Name and Address Organization Details Recorded Time 05/16/2020 text/html 01/10/20: Patient was seen in consultation at [facility] on 12/28/2019 after he was transferred from [place] because they were unable to place a [...] due to temporary catheter obstruction, evaluated at [facility] and this improved with catheter drainage. He has also seen Dr. Brady from nephrology for this. 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 Unfortunately he was unable to urinate after surgery and eventually had a Meyers catheter placed in the emergency room at [place]. He remains with a Meyers catheter. He [...] and outside labs from Dr. Hogue with [facility]. Jordan [place] MD [address] [place] [address],[address], [address], [facility] 05/16/2020 13:07:22 05/18/2021 text/html 01/10/20: Patient was seen in consultation at [facility] on 12/28/2019 after he was transferred from [place] because they were unable to place a Meeyrs catheter. He is diabetic and has severe phimosis. He has been not been able to retract his foreskin for more than 20 years. The foreskin was extremely swollen but I was able to place a catheter after dilating the tip of the prepuce and placing a wire. Initially had some renal insufficiency due to temporary catheter obstruction, evaluated at [facility] and this improved with catheter drainage. He has also seen Dr. Brady from nephrology for this. 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 Unfortunately he was unable to urinate after surgery and eventually had a Meyers catheter placed in the emergency room at [facility]. He remains with a Meyers catheter. He [...] and outside labs from Dr. Hogue with [facility]. 05/18/21: He has not been catheterizing any longer for about the last year. He does have weak stream and takes tamsulosin 0.8 mg daily. Nocturia x1. Review of his creatinine from [facility] on 03/30/2021 is 1.32. Postvoid residual today 300 mL. No further problems related to his foreskin. No recent prostate cancer screening. Last PSA was 0.25 in 2017. Jordan [place] MD [address] [facility],[address], [place], [address], [facility] 05/18/2021 17:51:02 06/14/2022 text/html 61 YO MALE prese nt for PVR. C/o incomplete bladder. Marilin proctor [place] [facility] 06/14/2022 17:25:00 06/23/2022 text/html 01/10/20: Patient was seen in consultation at [facility] on 12/28/2019 after he was transferred from [place] because they were unable to place a [...] due to temporary catheter obstruction, evaluated at [facility] and this improved with catheter drainage. He has also seen Dr. Brady from nephrology for this. 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 Unfortunately he was unable to urinate after surgery and eventually had a Meyers catheter placed in the emergency room at [place]. He remains with a Meyers catheter. He [...] and outside labs from Dr. Hogue with [facility]. 05/18/21: He has not been catheterizing any longer for about the last year. He does have weak stream and takes tamsulosin 0.8 mg daily. Nocturia x1. Review of his creatinine from [facility] on 03/30/2021 is 1.32. Postvoid residual [...] and trace blood. Jordan [place] MD [address] [facility],[address], [place], [address], [facility] 06/23/2022 12:48:56 10/05/2023 text/html 01/10/20: Patient was seen in consultation at [facility] on 12/28/2019 after he was transferred from [place] because they were unable to place a [...] due to temporary catheter obstruction, evaluated at [facility] and this improved with catheter drainage. He has also seen Dr. Brady from nephrology for this. 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 Unfortunately he was unable to urinate after surgery and eventually had a Meyers catheter placed in the emergency room at [place]. He remains with a Meyers catheter. He [...] and outside labs from Dr. Hogue with [facility]. 05/18/21: He has not been catheterizing any longer for about the last year. He does have weak stream and takes tamsulosin 0.8 mg daily. Nocturia x1. Review of his creatinine from [facility] on 03/30/2021 is 1.32. Postvoid residual [...] score 7, bother 4. Jordan [place] MD [address] [facility],[address], [place], [address], [facility] 10/05/2023 10:02:31
--- NOTE | 2024-05-07 14:03 | ED.NURSE ---
Patient declined need for crutches. Has walker at home and okay with this plan.
== END 2024-05-07 14:04 | disposition home or self-care (01) ==
PROVIDERS: Emergency Provider Emergency Medicine Emergency Medical Services; PCP Family Medicine
DX: S89.91XA Unspecified injury of right lower leg, initial encounter (principal)
CPT/HCPCS: 73590; 99283; 99284